=== PATIENT | female | born 1945 | race Hispanic/Latino ===

== ENCOUNTER 2020-08-26 20:11 | Inpatient (IN) | payer MEDICAID, SELFPAY ==
[2020-08-26 20:42] LABS: #Eosinphils 0.2 thou/uL (0.0-0.7); #Monocytes 0.6 thou/uL (0.11-0.59); #Neutrophils 3.4 thou/uL (1.40-6.50); %Basophils 0.8 % (0.0-1.0); %Eosinophils 2.5 % (0.0-10.0); %Lymphocytes 32.1 % (21.0-51.0); %Neutrophils 55.6 % (42.0-75.0); Hemoglobin 13.8 g/dL (12.0-16.0); Mean Corpuscular HGB CONC 32.9 g/dL (32.0-36.0); Mean Corpuscular Hemoglobin 28.9 pg (27.0-31.0); Mean Corpuscular Volume 87.9 fL (78.0-98.0); Mean Platelet Volume 8.6 fL (7.4-10.4); Platelet Count 340 thou/uL (130-400); Red Blood Cell (RBC) Count 4.76 mill/uL (4.20-5.40); White Blood Cell (WBC) Count 6.1 thou/uL (4.8-10.8)
[2020-08-26 20:47] LABS: INR-International Normal Ratio 0.8; PTT 26.3 sec (22.9-36.1); Prothrombin Time 11.6 sec (12.0-14.7)
[2020-08-26 21:04] LABS: ALT (SGPT) 18 U/L (8-55); AST (SGOT) 18 U/L (5-34); Albumin 3.7 g/dL (3.4-4.8); Alkaline Phosphatase 223 U/L (40-110); Anion Gap 17 mmol/L (10-20); BUN (Urea Nitrogen) 21 mg/dL (9.8-20.1); Bilirubin, Total 0.3 mg/dL (0.2-1.2); Calc. Creatinine Clearance 0 mL/min (70-130); Carbon Dioxide 19 mmol/L (23-31); Chloride 95 mmol/L (98-107); Globulin 3.2 g/dL (2.4-3.5); Lipase 82 U/L (8-78); Potassium 4.1 mmol/L (3.5-5.1); Protein, Total 6.9 g/dL (5.8-8.1); Sodium 127 mmol/L (136-145)
[2020-08-26 21:10] LABS: Glucose 750 mg/dL (83-110)
[2020-08-26] MEDS ORDERED: Metoprolol Tartrate 5 MG/5 ML VIAL ONE ×2 (22:34→22:35)
[2020-08-26] MEDS ORDERED: INSULIN REGULAR IN 0.9 % NACL 100 UNIT/100 ML BAG ONE (22:34)
[2020-08-26] MEDS ORDERED: Insulin Regular 300 UNITS/3 ML VIAL ONE (22:36)
[2020-08-27] MEDS ORDERED: Dextrose 50% Abboject 50 ML SYRINGE SLOW IVP PRN (00:20)
[2020-08-27] MEDS ORDERED: Dextrose 5% in Water 1,000 ML IV PRN (00:30)
[2020-08-27] MEDS ORDERED: Dextrose 5 %-0.45 % NaCl 1,000 ML IV PRN ×2 (00:30→01:15)
[2020-08-27] MEDS ORDERED: NS 0.9% w/ 20 MEQ KCL 1,000 ML/1,000 ML BAG IV PRN ×2 (00:30)
[2020-08-27] MEDS ORDERED: D5 1/2 NS w/20 mEq KCL 1,000 ML IV PRN (00:30)
[2020-08-27] MEDS ORDERED: HUMULIN R 100 UNITS in Sodium Chloride 0.9% 100 ML IVPB SCH ×2 (00:30→01:15)
[2020-08-27] MEDS ORDERED: Electrolyte Replacement Protocol FS PRN (00:30)
[2020-08-27] MEDS ORDERED: Sodium Chloride 0.9% 1,000 ML IV PRN ×8 (00:30→01:15)
[2020-08-27] MEDS ORDERED: Insulin Regular 300 UNITS/3 ML VIAL IVP SCH (00:30)
[2020-08-27] MEDS ORDERED: Labetalol HCl 100 MG/20 ML VIAL SLOW IVP PRN (00:36)
[2020-08-27] MEDS ORDERED: hydrALAZINE 20 MG/ML VIAL SLOW IVP PRN (00:36)
[2020-08-27] MEDS ORDERED: Labetalol HCl 100 MG/20 ML VIAL SLOW IVP SCH (00:45)
[2020-08-27 01:10] LABS: SARS-CoV-2 NAA Rapid Test Not Detected (NotDetected)
[2020-08-27] MEDS ORDERED: Electrolyte Replacement Protocol 1 EACH IVPB SCH (01:15)
[2020-08-27] MEDS ORDERED: Acetaminophen 325 MG TAB PO PRN (01:15)
[2020-08-27] MEDS ORDERED: Ondansetron PF 4 MG/2 ML Vial IVP PRN (01:15)
[2020-08-27] MEDS ORDERED: NS 0.9% w/ 20 MEQ KCL 1,000 ML IV PRN ×2 (01:15)
[2020-08-27] MEDS ORDERED: Ondansetron ODT 4 MG TAB PO PRN (01:15)
[2020-08-27 01:46] LABS: Anion Gap 14 mmol/L (10-20); BUN (Urea Nitrogen) 19 mg/dL (9.8-20.1); Calc. Creatinine Clearance 0 mL/min (70-130); Carbon Dioxide 18 mmol/L (23-31); Chloride 107 mmol/L (98-107); Glucose 296 mg/dL (83-110); Potassium 3.6 mmol/L (3.5-5.1); Sodium 135 mmol/L (136-145)
[2020-08-27 02:06] VITALS: BMI 25.0
[2020-08-27] MEDS: D5 1/2 NS w/20 mEq KCL 1,000 ML IV PRN ×2 (02:12→06:23)
[2020-08-27 02:48] LABS: Bacteria/HPF 2+ HPF (None Seen); Bilirubin Negative (Negative); Blood, Urine Trace (Negative); Clarity Turbid (Clear); Glucose, Urine (Dipstick) Greater than 1000 mg/dL (Negative); Ketone, Urine 10 mg/dL (Negative); Leukocyte 25 Leu/uL (Negative); Nitrite Negative (Negative); Protein, Urine (Dipstick) 100 mg/dL (Neg-Trace); RBC/HPF 0-3 HPF (0-3); Specific Gravity, Urine 1.021 (1.002-1.036); Squamous Epithelial 0-3 HPF (0-3); Urobilinogen Normal mg/dL (Less than 2)
[2020-08-27 02:50] LABS: Urine Culture Reflex Yes Yes
[2020-08-27 03:40] LABS: #Monocytes 0.8 thou/uL (0.11-0.59); %Basophils 0.3 % (0.0-1.0); %Eosinophils 0.1 % (0.0-10.0); %Lymphocytes 8.3 % (21.0-51.0); %Monocytes 6.4 % (0.0-10.0); %Neutrophils 84.9 % (42.0-75.0); Hemoglobin 12.4 g/dL (12.0-16.0); Mean Corpuscular HGB CONC 33.3 g/dL (32.0-36.0); Mean Corpuscular Volume 87.2 fL (78.0-98.0); Mean Platelet Volume 8.4 fL (7.4-10.4); Platelet Count 343 thou/uL (130-400); Red Blood Cell (RBC) Count 4.28 mill/uL (4.20-5.40); White Blood Cell (WBC) Count 11.8 thou/uL (4.8-10.8)
[2020-08-27] MEDS ORDERED: NIFEdipine XL 60 MG TAB PO SCH (04:15)
[2020-08-27] MEDS ORDERED: Metoprolol Tartrate 50 MG TAB PO SCH ×2 (04:15→21:00)
[2020-08-27 05:44] LABS: Anion Gap 17 mmol/L (10-20); BUN (Urea Nitrogen) 16 mg/dL (9.8-20.1); Calc. Creatinine Clearance 47 mL/min (70-130); Calcium 7.9 mg/dL (7.8-10.44); Carbon Dioxide 15 mmol/L (23-31); Chloride 110 mmol/L (98-107); Glucose 159 mg/dL (83-110); Potassium 3.6 mmol/L (3.5-5.1); Sodium 138 mmol/L (136-145)
[2020-08-27 05:45] LABS: Cardiac Risk 7.4 (Less than 4.5)
[2020-08-27] MEDS: Piperacillin/Tazobactam 4.5 GM in Sodium Chloride 0.9% 100 ML IVPB SCH ×3 (06:24→22:19)
[2020-08-27] MEDS ORDERED: VANCOMYCIN 1.25 GM/250 ML BAG IVPB SCH (06:30)
[2020-08-27] MEDS: Aspirin 81 mg Enteric Coated Tablet PO SCH (07:36)
[2020-08-27] MEDS ORDERED: Vancomycin 1 GM in Premix Bag 1 BAG IVPB SCH (08:00)
[2020-08-27 08:41] LABS: Lactic Acid 2.8 mmol/L (0.5-2.2)
[2020-08-27] MEDS ORDERED: Enoxaparin Sodium 40 MG/0.4 ML SYRINGE SC SCH (09:00)
[2020-08-27 09:44] LABS: Anion Gap 15 mmol/L (10-20); BUN (Urea Nitrogen) 15 mg/dL (9.8-20.1); Calc. Creatinine Clearance 44 mL/min (70-130); Calcium 8.2 mg/dL (7.8-10.44); Carbon Dioxide 15 mmol/L (23-31); Chloride 106 mmol/L (98-107); Glucose 217 mg/dL (83-110); Potassium 3.7 mmol/L (3.5-5.1); Sodium 132 mmol/L (136-145)
[2020-08-27] MEDS: Lantus 1000 UNITS/10 ML VIAL SC SCH (15:38)
[2020-08-27] MEDS ORDERED: Lantus 1000 UNITS/10 ML VIAL SC SCH (15:45)
[2020-08-27] MEDS: Atorvastatin Calcium 20 MG TAB PO SCH (20:20)
[2020-08-27] MEDS: Metoprolol Tartrate 50 MG TAB PO SCH (20:20)
[2020-08-27] MEDS: HumaLOG 300 UNITS/3 ML VIAL SC PRN (22:19)
[2020-08-27] MEDS ORDERED: Promethazine HCl 25 MG in Sodium Chloride 0.9% 50 ML IVPB SCH (23:45)
[2020-08-28 05:01] LABS: #Lymphocytes 0.7 thou/uL (1.20-3.40); #Monocytes 1.1 thou/uL (0.11-0.59); #Neutrophils 14.6 thou/uL (1.40-6.50); %Basophils 0.1 % (0.0-1.0); %Eosinophils 0.1 % (0.0-10.0); %Lymphocytes 4.1 % (21.0-51.0); %Monocytes 6.6 % (0.0-10.0); %Neutrophils 89.2 % (42.0-75.0); Hemoglobin 12.9 g/dL (12.0-16.0); Mean Corpuscular HGB CONC 35.1 g/dL (32.0-36.0); Mean Corpuscular Volume 88.5 fL (78.0-98.0); Mean Platelet Volume 8.8 fL (7.4-10.4); Platelet Count 332 thou/uL (130-400); RBC Distribution Width 12.5 % (11.5-14.5); Red Blood Cell (RBC) Count 4.16 mill/uL (4.20-5.40); White Blood Cell (WBC) Count 16.4 thou/uL (4.8-10.8)
[2020-08-28 05:21] LABS: Anion Gap 20 mmol/L (10-20); BUN (Urea Nitrogen) 18 mg/dL (9.8-20.1); Calc. Creatinine Clearance 32 mL/min (70-130); Calcium 8.9 mg/dL (7.8-10.44); Carbon Dioxide 14 mmol/L (23-31); Chloride 105 mmol/L (98-107); Glucose 342 mg/dL (83-110); Potassium 4.7 mmol/L (3.5-5.1); Sodium 134 mmol/L (136-145)
[2020-08-28] MEDS: Piperacillin/Tazobactam 4.5 GM in Sodium Chloride 0.9% 100 ML IVPB SCH ×3 (06:12→21:35)
[2020-08-28] MEDS: HumaLOG 300 UNITS/3 ML VIAL SC PRN ×4 (06:19→20:51)
[2020-08-28] MEDS ORDERED: NIFEdipine XL 60 MG TAB PO SCH (09:00)
[2020-08-28] MEDS: Clopidogrel Bisulfate 75 MG TAB PO SCH (09:06)
[2020-08-28] MEDS: Enoxaparin Sodium 30 MG/0.3 ML SYRINGE SC SCH (09:06)
[2020-08-28] MEDS: Metoprolol Tartrate 50 MG TAB PO SCH ×2 (09:06→20:43)
[2020-08-28] MEDS: Aspirin 81 mg Enteric Coated Tablet PO SCH (09:06)
[2020-08-28] MEDS: NIFEdipine XL 60 MG TAB PO SCH (09:07)
[2020-08-28] MEDS: Lantus 1000 UNITS/10 ML VIAL SC SCH ×2 (09:15→20:50)
[2020-08-28] MEDS ORDERED: Ondansetron PF 4 MG/2 ML Vial SLOW IVP SCH (17:45)
[2020-08-28] MEDS ORDERED: Sodium Chloride 0.9% 1,000 ML IV SCH (17:45)
[2020-08-28] MEDS: cefTRIAXone\\ROCEPHIN 2 GM in Sodium Chloride 0.9% 100 ML IVPB SCH (20:38)
[2020-08-28] MEDS: Sodium Chloride 0.9% 1,000 ML IV SCH (20:40)
[2020-08-28] MEDS: Atorvastatin Calcium 20 MG TAB PO SCH (20:43)
[2020-08-29] MEDS: Sodium Chloride 0.9% 1,000 ML IV SCH ×3 (03:41→22:19)
[2020-08-29 05:16] LABS: Hemoglobin 11.2 g/dL (12.0-16.0); Mean Corpuscular HGB CONC 32.1 g/dL (32.0-36.0); Mean Corpuscular Hemoglobin 28.6 pg (27.0-31.0); Mean Corpuscular Volume 88.9 fL (78.0-98.0); Mean Platelet Volume 8.5 fL (7.4-10.4); Platelet Count 317 thou/uL (130-400); RBC Distribution Width 12.8 % (11.5-14.5); Red Blood Cell (RBC) Count 3.93 mill/uL (4.20-5.40); White Blood Cell (WBC) Count 15.6 thou/uL (4.8-10.8)
[2020-08-29] MEDS: Piperacillin/Tazobactam 4.5 GM in Sodium Chloride 0.9% 100 ML IVPB SCH (05:19)
[2020-08-29 05:31] LABS: Anion Gap 16 mmol/L (10-20); BUN (Urea Nitrogen) 31 mg/dL (9.8-20.1); Calc. Creatinine Clearance 17 mL/min (70-130); Calcium 8.5 mg/dL (7.8-10.44); Carbon Dioxide 17 mmol/L (23-31); Chloride 108 mmol/L (98-107); Glucose 170 mg/dL (83-110); Potassium 4.5 mmol/L (3.5-5.1); Sodium 136 mmol/L (136-145)
[2020-08-29 05:42] LABS: Band 20 % (5-11); Lymphocytes 4 % (21-51); MDiff Complete? YES; Monocytes 5 % (0-10); Neutrophil 71 % (42-75); Platelet Morphology Comment Appears Adequate
[2020-08-29] MEDS: HumaLOG 300 UNITS/3 ML VIAL SC PRN ×3 (06:11→16:55)
[2020-08-29] MEDS: Lantus 1000 UNITS/10 ML VIAL SC SCH ×2 (08:47→20:39)
[2020-08-29] MEDS: Aspirin 81 mg Enteric Coated Tablet PO SCH (08:55)
[2020-08-29] MEDS: Enoxaparin Sodium 30 MG/0.3 ML SYRINGE SC SCH (08:55)
[2020-08-29] MEDS: Metoprolol Tartrate 50 MG TAB PO SCH ×2 (08:55→20:27)
[2020-08-29] MEDS: Clopidogrel Bisulfate 75 MG TAB PO SCH (08:55)
[2020-08-29] MEDS: NIFEdipine XL 60 MG TAB PO SCH (08:55)
[2020-08-29] MEDS ORDERED: Piperacillin/Tazobactam 2.25 GM in Sodium Chloride 0.9% 100 ML IVPB SCH (18:00)
[2020-08-29] MEDS: Atorvastatin Calcium 20 MG TAB PO SCH (20:27)
[2020-08-29] MEDS: cefTRIAXone\\ROCEPHIN 2 GM in Sodium Chloride 0.9% 100 ML IVPB SCH (20:27)
[2020-08-30] MEDS: Sodium Chloride 0.9% 1,000 ML IV SCH ×4 (01:19→18:31)
[2020-08-30 07:17] LABS: Anion Gap 14 mmol/L (10-20); BUN (Urea Nitrogen) 33 mg/dL (9.8-20.1); Calc. Creatinine Clearance 16 mL/min (70-130); Calcium 7.8 mg/dL (7.8-10.44); Carbon Dioxide 14 mmol/L (23-31); Chloride 113 mmol/L (98-107); Glucose 73 mg/dL (83-110); Potassium 4.2 mmol/L (3.5-5.1); Sodium 137 mmol/L (136-145)
[2020-08-30 07:38] LABS: Hemoglobin 10.1 g/dL (12.0-16.0); Mean Corpuscular HGB CONC 29.7 g/dL (32.0-36.0); Mean Corpuscular Hemoglobin 26.6 pg (27.0-31.0); Mean Corpuscular Volume 89.4 fL (78.0-98.0); Mean Platelet Volume 8.9 fL (7.4-10.4); Platelet Count 301 thou/uL (130-400); RBC Distribution Width 12.5 % (11.5-14.5); Red Blood Cell (RBC) Count 3.79 mill/uL (4.20-5.40)
[2020-08-30 08:02] LABS: Band 5 % (5-11); Eosinophils 3 % (0-10); Lymphocytes 5 % (21-51); MDiff Complete? YES; Monocytes 3 % (0-10); Neutrophil 84 % (42-75); Platelet Morphology Comment Appears Adequate; Polychromasia SLIGHT = 2-3 cells (100X) (0-2/hpf)
[2020-08-30] MEDS: Aspirin 81 mg Enteric Coated Tablet PO SCH (09:20)
[2020-08-30] MEDS: Metoprolol Tartrate 50 MG TAB PO SCH ×2 (09:20→20:10)
[2020-08-30] MEDS: Clopidogrel Bisulfate 75 MG TAB PO SCH (09:20)
[2020-08-30] MEDS: NIFEdipine XL 60 MG TAB PO SCH (09:21)
[2020-08-30] MEDS: Lantus 1000 UNITS/10 ML VIAL SC SCH ×2 (09:22→20:54)
[2020-08-30] MEDS: Atorvastatin Calcium 20 MG TAB PO SCH (20:10)
[2020-08-30] MEDS: cefTRIAXone\\ROCEPHIN 2 GM in Sodium Chloride 0.9% 100 ML IVPB SCH (20:10)
[2020-08-31 06:09] LABS: #Eosinphils 0.4 thou/uL (0.0-0.7); #Monocytes 0.4 thou/uL (0.11-0.59); #Neutrophils 8.1 thou/uL (1.40-6.50); %Basophils 0.2 % (0.0-1.0); %Eosinophils 4.2 % (0.0-10.0); %Lymphocytes 9.7 % (21.0-51.0); Hemoglobin 10.5 g/dL (12.0-16.0); Mean Corpuscular HGB CONC 32.5 g/dL (32.0-36.0); Mean Corpuscular Hemoglobin 28.8 pg (27.0-31.0); Mean Corpuscular Volume 88.8 fL (78.0-98.0); Mean Platelet Volume 8.2 fL (7.4-10.4); Platelet Count 292 thou/uL (130-400); RBC Distribution Width 12.2 % (11.5-14.5); Red Blood Cell (RBC) Count 3.63 mill/uL (4.20-5.40); White Blood Cell (WBC) Count 9.9 thou/uL (4.8-10.8)
[2020-08-31 06:24] LABS: Anion Gap 14 mmol/L (10-20); BUN (Urea Nitrogen) 29 mg/dL (9.8-20.1); Calc. Creatinine Clearance 19 mL/min (70-130); Calcium 7.2 mg/dL (7.8-10.44); Carbon Dioxide 14 mmol/L (23-31); Chloride 112 mmol/L (98-107); Glucose 77 mg/dL (83-110); Potassium 3.5 mmol/L (3.5-5.1); Sodium 136 mmol/L (136-145)
[2020-08-31] MEDS: Metoprolol Tartrate 50 MG TAB PO SCH ×2 (09:32→21:24)
[2020-08-31] MEDS: Aspirin 81 mg Enteric Coated Tablet PO SCH (09:32)
[2020-08-31] MEDS: NIFEdipine XL 60 MG TAB PO SCH (09:32)
[2020-08-31] MEDS: Sodium Chloride 0.9% 1,000 ML IV SCH (09:32)
[2020-08-31] MEDS: Clopidogrel Bisulfate 75 MG TAB PO SCH (09:32)
[2020-08-31] MEDS: Lantus 1000 UNITS/10 ML VIAL SC SCH ×2 (09:40→21:29)
[2020-08-31] MEDS ORDERED: Sodium Bicarbonate Tab 325 MG TAB PO SCH (17:45)
[2020-08-31] MEDS: cefTRIAXone\\ROCEPHIN 2 GM in Sodium Chloride 0.9% 100 ML IVPB SCH (21:17)
[2020-08-31] MEDS: Atorvastatin Calcium 20 MG TAB PO SCH (21:24)
[2020-08-31] MEDS: Sodium Bicarbonate Tab 325 MG TAB PO SCH (21:24)
[2020-09-01] MEDS: Sodium Chloride 0.9% 1,000 ML IV SCH ×2 (01:36→13:10)
[2020-09-01 05:21] LABS: Anion Gap 12 mmol/L (10-20); BUN (Urea Nitrogen) 26 mg/dL (9.8-20.1); Calc. Creatinine Clearance 21 mL/min (70-130); Calcium 7.2 mg/dL (7.8-10.44); Carbon Dioxide 17 mmol/L (23-31); Chloride 111 mmol/L (98-107); Glucose 129 mg/dL (83-110); Potassium 3.3 mmol/L (3.5-5.1); Sodium 137 mmol/L (136-145)
[2020-09-01] MEDS: Clopidogrel Bisulfate 75 MG TAB PO SCH (09:42)
[2020-09-01] MEDS: NIFEdipine XL 60 MG TAB PO SCH (09:42)
[2020-09-01] MEDS: Aspirin 81 mg Enteric Coated Tablet PO SCH (09:42)
[2020-09-01] MEDS: Metoprolol Tartrate 50 MG TAB PO SCH ×2 (09:42→20:30)
[2020-09-01] MEDS: Sodium Bicarbonate Tab 325 MG TAB PO SCH ×3 (09:42→20:29)
[2020-09-01] MEDS: Lantus 1000 UNITS/10 ML VIAL SC SCH ×2 (09:43→20:34)
[2020-09-01] MEDS ORDERED: Potassium Chloride 20 MEQ TAB PO SCH (12:45)
[2020-09-01] MEDS: HumaLOG 300 UNITS/3 ML VIAL SC PRN (16:26)
[2020-09-01] MEDS: Atorvastatin Calcium 20 MG TAB PO SCH (20:29)
[2020-09-01] MEDS: cefTRIAXone\\ROCEPHIN 2 GM in Sodium Chloride 0.9% 100 ML IVPB SCH (20:29)
[2020-09-02] MEDS: Sodium Chloride 0.9% 1,000 ML IV SCH ×2 (06:07→14:12)
[2020-09-02] MEDS: NIFEdipine XL 60 MG TAB PO SCH (09:19)
[2020-09-02] MEDS: Sodium Bicarbonate Tab 325 MG TAB PO SCH ×2 (09:19→15:21)
[2020-09-02] MEDS: Metoprolol Tartrate 50 MG TAB PO SCH (09:20)
[2020-09-02] MEDS: Aspirin 81 mg Enteric Coated Tablet PO SCH (09:20)
[2020-09-02] MEDS: Clopidogrel Bisulfate 75 MG TAB PO SCH (09:20)
[2020-09-02] MEDS: Lantus 1000 UNITS/10 ML VIAL SC SCH (09:20)
[2020-09-02 11:29] LABS: Anion Gap 15 mmol/L (10-20); BUN (Urea Nitrogen) 22 mg/dL (9.8-20.1); Calc. Creatinine Clearance 23 mL/min (70-130); Calcium 7.7 mg/dL (7.8-10.44); Carbon Dioxide 16 mmol/L (23-31); Chloride 113 mmol/L (98-107); Glucose 135 mg/dL (83-110); Sodium 140 mmol/L (136-145)
[2020-09-02 11:54] VITALS: BP 163/95; TEMP 98
== END 2020-09-02 15:37 | disposition home or self-care (01) | DRG 64 ==
LOC: ERS 20:11 → IMCU/EMU 22:46 → 2SE 08-27 20:00
PROVIDERS: ADMIT Student in an Organized Health Care Education/Training Program; ATTEND Family Medicine
DX: I63.9 Cerebral infarction, unspecified (principal); A41.50 Gram-negative sepsis, unspecified; E11.01 Type 2 diabetes mellitus with hyperosmolarity with coma; G93.41 Metabolic encephalopathy; E87.1 Hypo-osmolality and hyponatremia; I16.1 Hypertensive emergency; N17.9 Acute kidney failure, unspecified; N39.0 Urinary tract infection, site not specified; N18.4 Chronic kidney disease, stage 4 (severe); E87.2 Acidosis; G81.94 Hemiplegia, unspecified affecting left nondominant side; Z86.73 Personal history of transient ischemic attack (TIA), and cerebral infarction without residual deficits; R29.810 Facial weakness; Z79.02 Long term (current) use of antithrombotics/antiplatelets; Z79.4 Long term (current) use of insulin; R33.9 Retention of urine, unspecified; I12.9 Hypertensive chronic kidney disease with stage 1 through stage 4 chronic kidney disease, or unspecified chronic kidney disease; D64.9 Anemia, unspecified; E11.22 Type 2 diabetes mellitus with diabetic chronic kidney disease; E87.6 Hypokalemia; E83.51 Hypocalcemia
CPT/HCPCS: 36415; 36416; 70450; 70551; 71045; 76770; 80048; 80053; 80061; 81001; 82010; 83605; 83690; 83930; 84156; 84484; 85007; 85025; 85027; 85610; 85730; 87040; 87077; 87086; 87186; 93005; 93306; 93880; 94760; 95712; 95819; 95957; 96365; 96375; J0360; J0696; J1650; J1815; J2405; J2543; J2550; J3370; J3480; J3490; U0002

== ENCOUNTER 2021-12-09 21:33 | Inpatient (IN) | payer MEDICAID, SELFPAY ==
[~2021-12-09 21:33] MED LIST: ISOVUE-370 76%-LOCM 1 ML ONE
[2021-12-09 22:08] LABS: #Lymphocytes 1.1 thou/uL (1.20-3.40); #Monocytes 0.4 thou/uL (0.11-0.59); #Neutrophils 5.1 thou/uL (1.40-6.50); %Basophils 0.2 % (0.0-1.0); %Eosinophils 0.4 % (0.0-10.0); %Lymphocytes 16.2 % (21.0-51.0); %Monocytes 6.5 % (0.0-10.0); %Neutrophils 76.8 % (42.0-75.0); Hemoglobin 11.9 g/dL (12.0-16.0); Mean Corpuscular HGB CONC 31.2 g/dL (32.0-36.0); Mean Corpuscular Hemoglobin 29.5 pg (27.0-31.0); Mean Corpuscular Volume 94.5 fL (78.0-98.0); Mean Platelet Volume 8.7 fL (7.4-10.4); Platelet Count 332 thou/uL (130-400); RBC Distribution Width 12.3 % (11.5-14.5); Red Blood Cell (RBC) Count 4.04 mill/uL (4.20-5.40); White Blood Cell (WBC) Count 6.7 thou/uL (4.8-10.8)
[2021-12-09 22:24] LABS: PTT 29.7 sec (22.9-36.1); Prothrombin Time 12.8 sec (12.0-14.7)
[2021-12-09 22:28] LABS: ALT (SGPT) 61 U/L (8-55); AST (SGOT) 61 U/L (5-34); Albumin 3.9 g/dL (3.4-4.8); Alkaline Phosphatase 244 U/L (40-110); Anion Gap 18 mmol/L (10-20); BUN (Urea Nitrogen) 45 mg/dL (9.8-20.1); Bilirubin, Total 0.6 mg/dL (0.2-1.2); Calc. Creatinine Clearance 0 mL/min (70-130); Calcium 9.4 mg/dL (7.8-10.44); Carbon Dioxide 22 mmol/L (23-31); Chloride 87 mmol/L (98-107); Estimated GFR 13; Globulin 3.3 g/dL (2.4-3.5); Lipase 50 U/L (8-78); Protein, Total 7.2 g/dL (5.8-8.1); Sodium 122 mmol/L (136-145)
[2021-12-09 22:31] LABS: Glucose 1101 mg/dL (83-110)
[2021-12-09] MEDS ORDERED: Labetalol HCl 100 MG/20 ML VIAL ONE ×2 (22:32→22:35)
[2021-12-09] MEDS ORDERED: Tenecteplase 50 MG - STEMI KIT ONE (22:35)
[2021-12-09 22:53] LABS: CKMB 3.7 ng/mL (0-6.6)
[2021-12-09 23:29] LABS: Actual Bicarbonate (HCO3v) 21 mEq/L (22-28); Analyzer IN Cardio ER; Base Excess -4.3 mEq/L (-2.0 to +3.0); Calcium, Ionized (venous) 1.12 mmol/L (1.16-1.32); Chloride (VBG) 90 mmol/L (98-106); Sodium 122.2 mmol/L (133-146); pH (venous) 7.36 (7.32-7.43)
[2021-12-10] MEDS ORDERED: Dextrose 5 %-0.45 % NaCl 1,000 ML IV PRN
[2021-12-10] MEDS ORDERED: Ondansetron ODT 4 MG TAB PO PRN
[2021-12-10] MEDS ORDERED: D5 1/2 NS w/20 mEq KCL 1,000 ML IV PRN
[2021-12-10] MEDS ORDERED: Electrolyte Replacement Protocol 1 EACH IVPB PRN
[2021-12-10] MEDS ORDERED: Acetaminophen 650 MG Suppository PR PRN
[2021-12-10] MEDS ORDERED: Sodium Chloride 0.9% 1,000 ML IV PRN ×4
[2021-12-10] MEDS ORDERED: Ondansetron PF 4 MG/2 ML Vial IVP PRN
[2021-12-10] MEDS ORDERED: NS 0.9% w/ 20 MEQ KCL 1,000 ML IV PRN
[2021-12-10 00:59] LABS: SARS-CoV-2 NAA Rapid Test Not Detected (NotDetected)
[2021-12-10 01:11] LABS: Clarity Clear (Clear); Leukocyte Negative (Negative)
[2021-12-10 01:12] LABS: Glucose, Urine (Dipstick) >=1000 mg/dL (Negative); Ketone, Urine Negative (Negative); Nitrite Negative (Negative); Protein, Urine (Dipstick) 30 mg/dL (Neg-Trace)
[2021-12-10 01:13] LABS: Bilirubin Negative (Negative); Blood, Urine Trace (Negative); Urobilinogen 0.2 mg/dL (Less than 2)
[2021-12-10] MEDS ORDERED: HUMULIN R 100 UNITS in Sodium Chloride 0.9% 100 ML IVPB SCH (01:15)
[2021-12-10 01:20] LABS: Bacteria/HPF 4+ HPF (None Seen); RBC/HPF 0-3 HPF (0-3); Squamous Epithelial 0-3 HPF (0-3)
[2021-12-10 01:52] LABS: Anion Gap 17 mmol/L (10-20); BUN (Urea Nitrogen) 44 mg/dL (9.8-20.1); Calc. Creatinine Clearance 13 mL/min (70-130); Calcium 8.9 mg/dL (7.8-10.44); Carbon Dioxide 20 mmol/L (23-31); Chloride 96 mmol/L (98-107); Estimated GFR 17; Potassium 4.8 mmol/L (3.5-5.1); Sodium 128 mmol/L (136-145)
[2021-12-10 01:57] LABS: Troponin I 0.047 ng/mL (< 0.028)
[2021-12-10] MEDS: NS 0.9% w/ 20 MEQ KCL 1,000 ML IV PRN ×3 (02:03→13:36)
[2021-12-10 02:04] LABS: Glucose 935 mg/dL (83-110)
[2021-12-10 03:14] LABS: Glucose 897 mg/dL (83-110)
[2021-12-10] MEDS: Labetalol HCl 100 MG/20 ML VIAL SLOW IVP PRN ×5 (04:37→22:04)
[2021-12-10 04:41] LABS: ALT (SGPT) 46 U/L (8-55); AST (SGOT) 33 U/L (5-34); Albumin 3.4 g/dL (3.4-4.8); Alkaline Phosphatase 195 U/L (40-110); Bilirubin, Direct 0.2 mg/dL (0.1-0.3); Bilirubin, Total 0.5 mg/dL (0.2-1.2)
[2021-12-10 04:42] LABS: Anion Gap 18 mmol/L (10-20); BUN (Urea Nitrogen) 40 mg/dL (9.8-20.1); Calc. Creatinine Clearance 15 mL/min (70-130); Calcium 8.7 mg/dL (7.8-10.44); Carbon Dioxide 17 mmol/L (23-31); Cardiac Risk 5.1 (Less than 4.5); Chloride 105 mmol/L (98-107); Cholesterol 158 mg/dl (< 200 Desired); Estimated GFR 19; HDL Cholesterol 31 mg/dL (>60 Neg Risk); LDL Cholesterol, Calculated 96 mg/dL; Potassium 4.9 mmol/L (3.5-5.1); Sodium 135 mmol/L (136-145); Triglycerides 155 mg/dL (Less than 150)
[2021-12-10 04:45] LABS: Glucose 671 mg/dL (83-110)
[2021-12-10 04:47] LABS: Troponin I 0.058 ng/mL (< 0.028)
[2021-12-10 05:41] LABS: Glucose 646 mg/dL (83-110)
[2021-12-10 05:57] LABS: HBCM Index 0.16 S/CO (0-0.79); HBSAg Index 0.27 S/CO (0-0.99); Hep A IgM AB Non-Reactive (NonReactive); Hep B Surf Ag Non-Reactive S/CO (NonReactive); Hep C IgG Ab Non-Reactive (NonReactive); Hep C Index 0.05 S/CO (0-0.79); Hepatitis B Core IgM Abs Non-Reactive (NonReactive)
[2021-12-10 06:31] LABS: Glucose 621 mg/dL (83-110)
[2021-12-10 08:56] LABS: Anion Gap 15 mmol/L (10-20); BUN (Urea Nitrogen) 34 mg/dL (9.8-20.1); Calc. Creatinine Clearance 16 mL/min (70-130); Calcium 8.5 mg/dL (7.8-10.44); Carbon Dioxide 17 mmol/L (23-31); Chloride 111 mmol/L (98-107); Estimated GFR 20; Glucose 540 mg/dL (83-110); Sodium 138 mmol/L (136-145)
[2021-12-10 12:18] LABS: Anion Gap 13 mmol/L (10-20); BUN (Urea Nitrogen) 31 mg/dL (9.8-20.1); Calc. Creatinine Clearance 18 mL/min (70-130); Calcium 8.4 mg/dL (7.8-10.44); Carbon Dioxide 20 mmol/L (23-31); Chloride 117 mmol/L (98-107); Estimated GFR 23; Glucose 301 mg/dL (83-110); Potassium 4.5 mmol/L (3.5-5.1); Sodium 145 mmol/L (136-145)
[2021-12-10] MEDS ORDERED: hydrALAZINE 20 MG/ML VIAL SLOW IVP PRN ×3 (13:24→21:25)
[2021-12-10 16:26] LABS: Glucose 154 mg/dL (83-110)
[2021-12-10] MEDS ORDERED: Dextrose 5% in Water 1,000 ML IV PRN (16:54)
[2021-12-10] MEDS ORDERED: Dextrose 50% Abboject 50 ML SYRINGE SLOW IVP PRN (16:54)
[2021-12-10] MEDS: Sodium Chloride 0.45% 1,000 ML IV SCH (17:00)
[2021-12-10] MEDS: Atorvastatin Calcium 40 MG TAB PO SCH (20:06)
[2021-12-10] MEDS: Insulin Glargine 30 UNITS/0.3 ML VIAL SC SCH (20:21)
[2021-12-10] MEDS: HumaLOG 300 UNITS/3 ML VIAL SC PRN (22:20)
[2021-12-11] MEDS: Sodium Chloride 0.45% 1,000 ML IV SCH ×2 (03:10→13:25)
[2021-12-11 04:07] LABS: Hemoglobin A1c Greater than 14.0 % (4.0-6.0); Mean Corpuscular HGB CONC 33.1 g/dL (32.0-36.0); Mean Corpuscular Hemoglobin 29.8 pg (27.0-31.0); Mean Corpuscular Volume 89.9 fL (78.0-98.0); Mean Platelet Volume 8.1 fL (7.4-10.4); Platelet Count 284 thou/uL (130-400); RBC Distribution Width 12.6 % (11.5-14.5); Red Blood Cell (RBC) Count 3.01 mill/uL (4.20-5.40); White Blood Cell (WBC) Count 12.3 thou/uL (4.8-10.8)
[2021-12-11 04:19] LABS: Anion Gap 13 mmol/L (10-20); BUN (Urea Nitrogen) 22 mg/dL (9.8-20.1); Calc. Creatinine Clearance 24 mL/min (70-130); Carbon Dioxide 20 mmol/L (23-31); Cardiac Risk 4.7 (Less than 4.5); Chloride 115 mmol/L (98-107); Cholesterol 156 mg/dl (< 200 Desired); Estimated GFR 32; Glucose 119 mg/dL (83-110); HDL Cholesterol 33 mg/dL (>60 Neg Risk); LDL Cholesterol, Calculated 92 mg/dL; Potassium 3.8 mmol/L (3.5-5.1); Sodium 144 mmol/L (136-145); Triglycerides 154 mg/dL (Less than 150)
[2021-12-11] MEDS: Labetalol HCl 100 MG/20 ML VIAL SLOW IVP PRN (09:16)
[2021-12-11 11:04] VITALS: BMI 24.0
[2021-12-11] MEDS ORDERED: Aspirin 81 mg Enteric Coated Tablet PO SCH (12:00)
[2021-12-11] MEDS: HumaLOG 300 UNITS/3 ML VIAL SC PRN (17:16)
[2021-12-11] MEDS: Insulin Glargine 30 UNITS/0.3 ML VIAL SC SCH (22:04)
[2021-12-11] MEDS: Atorvastatin Calcium 40 MG TAB PO SCH (22:05)
[2021-12-12] MEDS: HumaLOG 300 UNITS/3 ML VIAL SC PRN ×3 (01:49→16:35)
[2021-12-12 05:56] LABS: Anion Gap 12 mmol/L (10-20); BUN (Urea Nitrogen) 23 mg/dL (9.8-20.1); Calc. Creatinine Clearance 22 mL/min (70-130); Calcium 8.4 mg/dL (7.8-10.44); Carbon Dioxide 19 mmol/L (23-31); Chloride 114 mmol/L (98-107); Estimated GFR 28; Glucose 197 mg/dL (83-110); Potassium 3.9 mmol/L (3.5-5.1); Sodium 141 mmol/L (136-145)
[2021-12-12] MEDS: Sodium Chloride 0.45% 1,000 ML IV SCH ×2 (06:56→22:33)
[2021-12-12] MEDS ORDERED: Aspirin 300 MG Suppository PR SCH (09:00)
[2021-12-12] MEDS: Aspirin 81 mg Enteric Coated Tablet PO SCH (09:02)
[2021-12-12 09:50] LABS: Bilirubin Negative (Negative); Blood, Urine Trace (Negative); Glucose, Urine (Dipstick) >=1000 mg/dL (Negative); Ketone, Urine Negative (Negative); Leukocyte Trace (Negative); Nitrite Negative (Negative); Protein, Urine (Dipstick) 100 mg/dL (Neg-Trace); Specific Gravity, Urine 1.025 (1.005-1.030); Urobilinogen 0.2 mg/dL (Less than 2)
[2021-12-12 09:59] LABS: Clarity Turbid (Clear)
[2021-12-12 10:01] LABS: Bacteria/HPF 4+ HPF (None Seen); RBC/HPF 0-3 HPF (0-3)
[2021-12-12 10:02] LABS: Urine Culture Reflex No No
[2021-12-12] MEDS: cefTRIAXone\\ROCEPHIN 1 GM in Sodium Chloride 0.9% 100 ML IVPB SCH (12:21)
[2021-12-12] MEDS: Acetaminophen 325 MG TAB PO PRN (22:19)
[2021-12-12] MEDS: Insulin Glargine 30 UNITS/0.3 ML VIAL SC SCH (22:20)
[2021-12-12] MEDS: Atorvastatin Calcium 40 MG TAB PO SCH (22:20)
[2021-12-12] MEDS: Labetalol HCl 100 MG/20 ML VIAL SLOW IVP PRN (22:34)
[2021-12-13 05:44] LABS: Hemoglobin 8.1 g/dL (12.0-16.0); Mean Corpuscular HGB CONC 33.2 g/dL (32.0-36.0); Mean Corpuscular Hemoglobin 30.1 pg (27.0-31.0); Mean Corpuscular Volume 90.6 fL (78.0-98.0); Mean Platelet Volume 8.1 fL (7.4-10.4); Platelet Count 227 thou/uL (130-400); RBC Distribution Width 12.5 % (11.5-14.5); Red Blood Cell (RBC) Count 2.68 mill/uL (4.20-5.40); White Blood Cell (WBC) Count 6.3 thou/uL (4.8-10.8)
[2021-12-13 06:07] LABS: Anion Gap 11 mmol/L (10-20); BUN (Urea Nitrogen) 23 mg/dL (9.8-20.1); Calc. Creatinine Clearance 22 mL/min (70-130); Calcium 7.9 mg/dL (7.8-10.44); Carbon Dioxide 17 mmol/L (23-31); Chloride 112 mmol/L (98-107); Estimated GFR 28; Glucose 231 mg/dL (83-110); Potassium 3.9 mmol/L (3.5-5.1); Sodium 136 mmol/L (136-145)
[2021-12-13] MEDS: HumaLOG 300 UNITS/3 ML VIAL SC PRN ×4 (06:29→20:16)
[2021-12-13] MEDS: Aspirin 81 mg Enteric Coated Tablet PO SCH (10:08)
[2021-12-13] MEDS: Acetaminophen 325 MG TAB PO PRN (10:14)
[2021-12-13] MEDS: Sodium Chloride 0.45% 1,000 ML IV SCH ×2 (10:19→20:21)
[2021-12-13] MEDS: cefTRIAXone\\ROCEPHIN 1 GM in Sodium Chloride 0.9% 100 ML IVPB SCH (13:11)
[2021-12-13] MEDS: Insulin Glargine 30 UNITS/0.3 ML VIAL SC SCH (20:16)
[2021-12-13] MEDS: Atorvastatin Calcium 40 MG TAB PO SCH (20:16)
[2021-12-14 05:22] LABS: Anion Gap 9 mmol/L (10-20); BUN (Urea Nitrogen) 24 mg/dL (9.8-20.1); Calc. Creatinine Clearance 24 mL/min (70-130); Calcium 7.9 mg/dL (7.8-10.44); Carbon Dioxide 21 mmol/L (23-31); Chloride 110 mmol/L (98-107); Estimated GFR 32; Glucose 100 mg/dL (83-110); Sodium 136 mmol/L (136-145)
[2021-12-14] MEDS: Aspirin 81 mg Enteric Coated Tablet PO SCH (08:55)
[2021-12-14] MEDS: Acetaminophen 325 MG TAB PO PRN (08:55)
[2021-12-14] MEDS: Sodium Chloride 0.45% 1,000 ML IV SCH (11:40)
[2021-12-14] MEDS: HumaLOG 300 UNITS/3 ML VIAL SC PRN ×2 (17:31→20:04)
[2021-12-14] MEDS: Atorvastatin Calcium 40 MG TAB PO SCH (20:04)
[2021-12-14] MEDS: Insulin Glargine 30 UNITS/0.3 ML VIAL SC SCH (20:04)
[2021-12-15] MEDS: Sodium Chloride 0.45% 1,000 ML IV SCH (00:28)
[2021-12-15] MEDS: Labetalol HCl 100 MG/20 ML VIAL SLOW IVP PRN (04:15)
[2021-12-15 05:58] LABS: Anion Gap 10 mmol/L (10-20); BUN (Urea Nitrogen) 24 mg/dL (9.8-20.1); Calc. Creatinine Clearance 26 mL/min (70-130); Calcium 8.2 mg/dL (7.8-10.44); Carbon Dioxide 22 mmol/L (23-31); Chloride 107 mmol/L (98-107); Estimated GFR 34; Glucose 200 mg/dL (83-110); Potassium 3.9 mmol/L (3.5-5.1); Sodium 135 mmol/L (136-145)
[2021-12-15] MEDS: HumaLOG 300 UNITS/3 ML VIAL SC PRN ×3 (06:10→17:09)
[2021-12-15] MEDS: Aspirin 81 mg Enteric Coated Tablet PO SCH (09:59)
[2021-12-15] MEDS ORDERED: NIFEdipine XL 60 MG TAB PO SCH (11:00)
[2021-12-15] MEDS ORDERED: Clopidogrel Bisulfate 75 MG TAB PO SCH (11:00)
[2021-12-15 11:55] VITALS: TEMP 98.1
[2021-12-15 15:48] VITALS: BP 124/63
[2021-12-15] MEDS ORDERED: Metoprolol Tartrate 50 MG TAB PO SCH ×2 (18:15→21:00)
[2021-12-16] MEDS ORDERED: Clopidogrel Bisulfate 75 MG TAB PO SCH (09:00)
[2021-12-16] MEDS ORDERED: NIFEdipine XL 60 MG TAB PO SCH (09:00)
[2021-12-16] MEDS ORDERED: Cholecalciferol 1,000 UNITS (25 MCG) TAB PO SCH (09:00)
== END 2021-12-15 19:20 | disposition home health service (06) | DRG 61 ==
LOC: ERS 21:33 → CCU 23:37 → NEURO 12-11 19:14
PROVIDERS: ADMIT Family Medicine; ATTEND Family Medicine
DX: I63.312 Cerebral infarction due to thrombosis of left middle cerebral artery (principal); Z66 Do not resuscitate; Z20.822 Contact with and (suspected) exposure to COVID-19; R29.711 NIHSS score 11; G93.41 Metabolic encephalopathy; N17.9 Acute kidney failure, unspecified; E87.1 Hypo-osmolality and hyponatremia; I12.9 Hypertensive chronic kidney disease with stage 1 through stage 4 chronic kidney disease, or unspecified chronic kidney disease; E11.22 Type 2 diabetes mellitus with diabetic chronic kidney disease; F80.2 Mixed receptive-expressive language disorder; E78.5 Hyperlipidemia, unspecified; F32.A Depression, unspecified; R29.810 Facial weakness; E11.65 Type 2 diabetes mellitus with hyperglycemia; N18.30 Chronic kidney disease, stage 3 unspecified; R74.01 Elevation of levels of liver transaminase levels; E86.0 Dehydration; E66.9 Obesity, unspecified; D63.1 Anemia in chronic kidney disease; E86.9 Volume depletion, unspecified; I44.7 Left bundle-branch block, unspecified; R82.998 Other abnormal findings in urine; Z78.1 Physical restraint status; Z86.73 Personal history of transient ischemic attack (TIA), and cerebral infarction without residual deficits; Z79.4 Long term (current) use of insulin; Z79.899 Other long term (current) drug therapy; Z79.02 Long term (current) use of antithrombotics/antiplatelets; Z79.82 Long term (current) use of aspirin; Z79.84 Long term (current) use of oral hypoglycemic drugs; Z68.24 Body mass index [BMI] 24.0-24.9, adult
CPT/HCPCS: 36415; 36416; 51702; 70450; 70496; 70498; 70551; 80048; 80053; 80061; 80074; 80076; 81001; 81003; 81015; 82010; 82140; 82550; 82553; 82805; 83036; 83690; 84484; 85025; 85027; 85610; 85730; 93005; 93306; 96361; 96374; 96375; J0360; J0696; J1815; J3101; J3480; J3490; J7042; J7050; Q9966; U0002

== ENCOUNTER 2022-03-01 11:30 | Emergency (ER) | payer MEDICAID ==
[2022-03-01 14:20] LABS: Bacteria/HPF 4+ HPF (None Seen); Bilirubin Negative (Negative); Blood, Urine Negative (Negative); Clarity Cloudy (Clear); Glucose, Urine (Dipstick) Greater than 1000 mg/dL (Negative); Ketone, Urine Negative (Negative); Leukocyte 500 Leu/uL (Negative); Nitrite 2+ (Negative); Protein, Urine (Dipstick) 70 mg/dL (Neg-Trace); RBC/HPF 0-3 HPF (0-3); Specific Gravity, Urine 1.011 (1.002-1.036); Squamous Epithelial 0-3 HPF (0-3); Triple Phosphate Crystal Rare HPF (None Seen); Urobilinogen Normal mg/dL (Less than 2); WBC/HPF 21-50 HPF (0-3)
== END 2022-03-01 14:54 | disposition home or self-care (01) ==
LOC: ERS 11:30
DX: N39.0 Urinary tract infection, site not specified (principal); E11.9 Type 2 diabetes mellitus without complications; I10 Essential (primary) hypertension; Z86.73 Personal history of transient ischemic attack (TIA), and cerebral infarction without residual deficits
CPT/HCPCS: 81003; 81015; 87086; 99283

== ENCOUNTER 2022-05-03 12:40 | Inpatient (IN) | payer MEDICAID, SELFPAY ==
[2022-05-03 13:50] LABS: #Lymphocytes 0.6 thou/uL (1.20-3.40); #Monocytes 0.5 thou/uL (0.11-0.59); #Neutrophils 6.8 thou/uL (1.40-6.50); %Basophils 0.1 % (0.0-1.0); %Eosinophils 0.1 % (0.0-10.0); %Lymphocytes 7.8 % (21.0-51.0); %Monocytes 6.6 % (0.0-10.0); %Neutrophils 85.4 % (42.0-75.0); Hemoglobin 11.8 g/dL (12.0-16.0); Mean Corpuscular HGB CONC 33.2 g/dL (32.0-36.0); Mean Corpuscular Hemoglobin 29.8 pg (27.0-31.0); Mean Corpuscular Volume 89.7 fl (78.0-98.0); Mean Platelet Volume 9.2 fL (7.4-10.4); Platelet Count 419 10x3/uL (130-400); RBC Distribution Width 12.5 % (11.5-14.5); Red Blood Cell (RBC) Count 3.97 mill/uL (4.20-5.40)
[2022-05-03 14:00] LABS: PTT 29.6 sec (22.9-36.1); Prothrombin Time 13.3 sec (12.0-14.7)
[2022-05-03 14:04] LABS: Bacteria/HPF 3+ HPF (None Seen); Bilirubin Negative (Negative); Blood, Urine Trace (Negative); Clarity Turbid (Clear); Glucose, Urine (Dipstick) Greater than 1000 mg/dL (Negative); Ketone, Urine Trace mg/dL (Negative); Leukocyte 250 Leu/uL (Negative); Nitrite Negative (Negative); Protein, Urine (Dipstick) 70 mg/dL (Neg-Trace); RBC/HPF 0-3 HPF (0-3); Specific Gravity, Urine 1.023 (1.002-1.036); Squamous Epithelial None Seen HPF (0-3); Urobilinogen Normal mg/dL (Less than 2); WBC/HPF 21-50 HPF (0-3); pH, Urine 5.5 (5.0-9.0)
[2022-05-03 14:08] LABS: ALT (SGPT) 20 U/L (8-55); AST (SGOT) 16 U/L (5-34); Albumin 4.2 g/dL (3.4-4.8); Alkaline Phosphatase 194 U/L (40-110); Anion Gap 17 mmol/L (10-20); BUN (Urea Nitrogen) 58 mg/dL (9.8-20.1); Bilirubin, Total 0.7 mg/dL (0.2-1.2); Calc. Creatinine Clearance 0 mL/min (70-130); Calcium 10.3 mg/dL (7.8-10.44); Carbon Dioxide 25 mmol/L (23-31); Chloride 93 mmol/L (98-107); Estimated GFR 14; Globulin 4.1 g/dL (2.4-3.5); Potassium 4.2 mmol/L (3.5-5.1); Protein, Total 8.3 g/dL (5.8-8.1); Sodium 131 mmol/L (136-145)
[2022-05-03 14:18] LABS: Glucose 864 mg/dL (83-110)
[2022-05-03] MEDS ORDERED: cefTRIAXone\\ROCEPHIN 1 GM VIAL ONE (14:25)
[2022-05-03] MEDS ORDERED: Insulin Regular 300 UNITS/3 ML VIAL ONE (14:25)
[2022-05-03 14:30] LABS: CKMB 2.9 ng/mL (0-6.6)
[2022-05-03] MEDS ORDERED: NS 0.9% w/ 20 MEQ KCL 1,000 ML IV PRN ×2 (16:24)
[2022-05-03] MEDS ORDERED: Electrolyte Replacement Protocol 1 EACH IVPB ONE (16:24)
[2022-05-03] MEDS ORDERED: Acetaminophen 325 MG TAB PO PRN (16:24)
[2022-05-03] MEDS ORDERED: Sodium Chloride 0.9% 1,000 ML IV PRN ×4 (16:24)
[2022-05-03] MEDS ORDERED: D5 1/2 NS w/20 mEq KCL 1,000 ML IV PRN (16:24)
[2022-05-03] MEDS ORDERED: Dextrose 5 %-0.45 % NaCl 1,000 ML IV PRN (16:24)
[2022-05-03] MEDS ORDERED: HUMULIN R 100 UNITS in Sodium Chloride 0.9% 100 ML IVPB SCH (16:30)
[2022-05-03 17:08] LABS: Anion Gap 16 mmol/L (10-20); BUN (Urea Nitrogen) 54 mg/dL (9.8-20.1); Calc. Creatinine Clearance 0 mL/min (70-130); Calcium 9.6 mg/dL (7.8-10.44); Carbon Dioxide 24 mmol/L (23-31); Chloride 102 mmol/L (98-107); Estimated GFR 18; Potassium 4.2 mmol/L (3.5-5.1); Sodium 138 mmol/L (136-145)
[2022-05-03 17:14] LABS: Troponin I 0.036 ng/mL (< 0.028)
[2022-05-03 17:17] LABS: Glucose 584 mg/dL (83-110)
[2022-05-03 19:46] VITALS: BMI 20.5
[2022-05-03] MEDS ORDERED: HumaLOG 300 UNITS/3 ML VIAL SC PRN (19:46)
[2022-05-03] MEDS ORDERED: Dextrose 5% in Water 1,000 ML IV PRN (19:46)
[2022-05-03] MEDS ORDERED: Dextrose 50% Abboject 50 ML SYRINGE SLOW IVP PRN (19:46)
[2022-05-03] MEDS: Insulin Glargine 30 UNITS/0.3 ML VIAL SC SCH (20:07)
[2022-05-03] MEDS: Famotidine/PF 20 mg/2ml Vial SLOW IVP SCH (20:07)
[2022-05-03] MEDS: Heparin 5,000 UNITS/ML VIAL SC SCH (20:07)
[2022-05-03] MEDS: HumaLOG 300 UNITS/3 ML VIAL SC PRN (20:08)
[2022-05-03 21:11] LABS: Anion Gap 13 mmol/L (10-20); BUN (Urea Nitrogen) 46 mg/dL (9.8-20.1); Calc. Creatinine Clearance 16 mL/min (70-130); Calcium 8.9 mg/dL (7.8-10.44); Carbon Dioxide 23 mmol/L (23-31); Chloride 108 mmol/L (98-107); Estimated GFR 23; Glucose 317 mg/dL (83-110); Potassium 3.1 mmol/L (3.5-5.1); Sodium 141 mmol/L (136-145)
[2022-05-03 21:12] LABS: Troponin I 0.049 ng/mL (< 0.028)
[2022-05-04 04:24] LABS: Anion Gap 13 mmol/L (10-20); BUN (Urea Nitrogen) 45 mg/dL (9.8-20.1); Calc. Creatinine Clearance 18 mL/min (70-130); Calcium 9.3 mg/dL (7.8-10.44); Carbon Dioxide 24 mmol/L (23-31); Chloride 112 mmol/L (98-107); Estimated GFR 25; Glucose 61 mg/dL (83-110); Potassium 3.1 mmol/L (3.5-5.1); Sodium 146 mmol/L (136-145)
[2022-05-04] MEDS: Heparin 5,000 UNITS/ML VIAL SC SCH ×3 (09:29→21:04)
[2022-05-04] MEDS: cefTRIAXone\\ROCEPHIN 1 GM in Sodium Chloride 0.9% 100 ML IVPB SCH (16:28)
[2022-05-04] MEDS: Famotidine/PF 20 mg/2ml Vial SLOW IVP SCH (21:04)
[2022-05-04] MEDS: Insulin Glargine 30 UNITS/0.3 ML VIAL SC SCH (21:04)
[2022-05-05] MEDS ORDERED: Electrolyte Replacement Protocol 1 EACH FS SCH (00:45)
[2022-05-05 01:41] LABS: Magnesium 2.3 mg/dL (1.6-2.6)
[2022-05-05 01:49] LABS: Troponin I 0.031 ng/mL (< 0.028)
[2022-05-05 01:53] LABS: Anion Gap 13 mmol/L (10-20); BUN (Urea Nitrogen) 37 mg/dL (9.8-20.1); Calc. Creatinine Clearance 19 mL/min (70-130); Calcium 8.9 mg/dL (7.8-10.44); Carbon Dioxide 21 mmol/L (23-31); Chloride 110 mmol/L (98-107); Estimated GFR 27; Glucose 98 mg/dL (83-110); Potassium 3.2 mmol/L (3.5-5.1); Sodium 141 mmol/L (136-145)
[2022-05-05] MEDS ORDERED: Potassium Chloride 20 MEQ TAB PO SCH (03:30)
[2022-05-05] MEDS: Heparin 5,000 UNITS/ML VIAL SC SCH ×3 (09:21→20:32)
[2022-05-05] MEDS: cefTRIAXone\\ROCEPHIN 1 GM in Sodium Chloride 0.9% 100 ML IVPB SCH (15:39)
[2022-05-05] MEDS: HumaLOG 300 UNITS/3 ML VIAL SC PRN (15:39)
[2022-05-05] MEDS: Atorvastatin Calcium 40 MG TAB PO SCH (20:32)
[2022-05-05] MEDS: Famotidine/PF 20 mg/2ml Vial SLOW IVP SCH (20:32)
[2022-05-05] MEDS: Metoprolol Tartrate 50 MG TAB PO SCH (20:32)
[2022-05-05] MEDS: Insulin Glargine 30 UNITS/0.3 ML VIAL SC SCH (20:34)
[2022-05-06] MEDS ORDERED: Morphine 4 MG/ML VIAL SLOW IVP PRN (00:27)
[2022-05-06] MEDS ORDERED: Metoprolol Tartrate 25 MG TAB PO SCH (00:30)
[2022-05-06 05:06] LABS: #Eosinphils 0.2 thou/uL (0.0-0.7); #Lymphocytes 1.9 thou/uL (1.20-3.40); #Monocytes 0.5 thou/uL (0.11-0.59); #Neutrophils 3.9 thou/uL (1.40-6.50); %Basophils 0.5 % (0.0-1.0); %Eosinophils 2.4 % (0.0-10.0); %Lymphocytes 29.4 % (21.0-51.0); %Monocytes 8.3 % (0.0-10.0); %Neutrophils 59.4 % (42.0-75.0); Hemoglobin 9.8 g/dL (12.0-16.0); Mean Corpuscular Hemoglobin 29.5 pg (27.0-31.0); Mean Corpuscular Volume 92.3 fl (78.0-98.0); Mean Platelet Volume 8.6 fL (7.4-10.4); Platelet Count 371 10x3/uL (130-400); RBC Distribution Width 12.6 % (11.5-14.5); Red Blood Cell (RBC) Count 3.33 mill/uL (4.20-5.40); White Blood Cell (WBC) Count 6.5 10x3/uL (4.8-10.8)
[2022-05-06 05:24] LABS: Anion Gap 12 mmol/L (10-20); BUN (Urea Nitrogen) 39 mg/dL (9.8-20.1); Calc. Creatinine Clearance 19 mL/min (70-130); Calcium 8.3 mg/dL (7.8-10.44); Carbon Dioxide 20 mmol/L (23-31); Chloride 109 mmol/L (98-107); Estimated GFR 28; Glucose 159 mg/dL (83-110); Potassium 4.1 mmol/L (3.5-5.1); Sodium 137 mmol/L (136-145)
[2022-05-06] MEDS ORDERED: FLU VACC QS2022-23(65YR UP)/PF 240 MCG/0.7 ML SYRINGE IM ONE (09:00)
[2022-05-06] MEDS: Aspirin 81 mg Enteric Coated Tablet PO SCH (09:11)
[2022-05-06] MEDS: Clopidogrel Bisulfate 75 MG TAB PO SCH (09:11)
[2022-05-06] MEDS: Cholecalciferol 1,000 UNITS (25 MCG) TAB PO SCH (09:11)
[2022-05-06] MEDS: Metoprolol Tartrate 50 MG TAB PO SCH ×2 (09:11→22:10)
[2022-05-06] MEDS: Heparin 5,000 UNITS/ML VIAL SC SCH ×3 (09:12→22:09)
[2022-05-06] MEDS: HumaLOG 300 UNITS/3 ML VIAL SC PRN (13:18)
[2022-05-06] MEDS: cefTRIAXone\\ROCEPHIN 1 GM in Sodium Chloride 0.9% 100 ML IVPB SCH (13:19)
[2022-05-06] MEDS ORDERED: NIFEdipine XL 60 MG TAB PO SCH (14:00)
[2022-05-06] MEDS: Atorvastatin Calcium 40 MG TAB PO SCH (22:09)
[2022-05-06] MEDS: Famotidine/PF 20 mg/2ml Vial SLOW IVP SCH (22:09)
[2022-05-06] MEDS: Insulin Glargine 30 UNITS/0.3 ML VIAL SC SCH (22:10)
[2022-05-07] MEDS ORDERED: Melatonin 3 MG TAB PO PRN (01:36)
[2022-05-07 05:25] LABS: Anion Gap 11 mmol/L (10-20); BUN (Urea Nitrogen) 37 mg/dL (9.8-20.1); Calc. Creatinine Clearance 19 mL/min (70-130); Calcium 8.5 mg/dL (7.8-10.44); Carbon Dioxide 22 mmol/L (23-31); Chloride 108 mmol/L (98-107); Estimated GFR 28; Glucose 178 mg/dL (83-110); Potassium 4.5 mmol/L (3.5-5.1); Sodium 136 mmol/L (136-145)
[2022-05-07] MEDS: Aspirin 81 mg Enteric Coated Tablet PO SCH (10:57)
[2022-05-07] MEDS: Cholecalciferol 1,000 UNITS (25 MCG) TAB PO SCH (10:57)
[2022-05-07] MEDS: Metoprolol Tartrate 50 MG TAB PO SCH (10:58)
[2022-05-07] MEDS: Clopidogrel Bisulfate 75 MG TAB PO SCH (10:58)
[2022-05-07] MEDS: Heparin 5,000 UNITS/ML VIAL SC SCH (11:42)
[2022-05-07 12:40] VITALS: BP 161/89; TEMP 97.5
== END 2022-05-07 12:45 | disposition home or self-care (01) | DRG 637 ==
LOC: ERS 12:40 → CCU 15:41 → 2NO 22:07
PROVIDERS: ADMIT Family Medicine; ATTEND Family Medicine
DX: E11.00 Type 2 diabetes mellitus with hyperosmolarity without nonketotic hyperglycemic-hyperosmolar coma (NKHHC) (principal); N39.0 Urinary tract infection, site not specified; G93.41 Metabolic encephalopathy; N18.4 Chronic kidney disease, stage 4 (severe); N17.9 Acute kidney failure, unspecified; Z66 Do not resuscitate; Z20.822 Contact with and (suspected) exposure to COVID-19; E11.65 Type 2 diabetes mellitus with hyperglycemia; E11.22 Type 2 diabetes mellitus with diabetic chronic kidney disease; E78.5 Hyperlipidemia, unspecified; I12.9 Hypertensive chronic kidney disease with stage 1 through stage 4 chronic kidney disease, or unspecified chronic kidney disease; E86.0 Dehydration; F32.A Depression, unspecified; B96.20 Unspecified Escherichia coli [E. coli] as the cause of diseases classified elsewhere; Z86.73 Personal history of transient ischemic attack (TIA), and cerebral infarction without residual deficits; Z79.899 Other long term (current) drug therapy; Z79.01 Long term (current) use of anticoagulants; Z79.82 Long term (current) use of aspirin; Z79.4 Long term (current) use of insulin
CPT/HCPCS: 36415; 36416; 51701; 70450; 70551; 71045; 80048; 80053; 81003; 81015; 82553; 83735; 84484; 85025; 85610; 85730; 87040; 87077; 87086; 87186; 93005; 96365; J0696; J1644; J1815; J3480; J3490; J7030; J7042; J7050; S0028; U0003; U0005

== ENCOUNTER 2022-06-19 11:28 | Observation (INO) | payer MEDICAID ==
[2022-06-19 12:52] LABS: #Lymphocytes 1.1 thou/uL (1.20-3.40); #Monocytes 0.3 thou/uL (0.11-0.59); #Neutrophils 5.4 thou/uL (1.40-6.50); %Basophils 0.6 % (0.0-1.0); %Eosinophils 0.7 % (0.0-10.0); %Lymphocytes 16.1 % (21.0-51.0); %Monocytes 4.6 % (0.0-10.0); %Neutrophils 78.1 % (42.0-75.0); Hemoglobin 11.3 g/dL (12.0-16.0); Mean Corpuscular HGB CONC 31.5 g/dL (32.0-36.0); Mean Corpuscular Hemoglobin 29.1 pg (27.0-31.0); Mean Corpuscular Volume 92.5 fl (78.0-98.0); Mean Platelet Volume 7.7 fL (7.4-10.4); Platelet Count 401 10x3/uL (130-400); RBC Distribution Width 14.2 % (11.5-14.5); Red Blood Cell (RBC) Count 3.86 mill/uL (4.20-5.40)
[2022-06-19 13:04] LABS: INR-International Normal Ratio 0.9; Prothrombin Time 12.6 sec (12.0-14.7)
[2022-06-19 13:16] LABS: ALT (SGPT) 50 U/L (8-55); AST (SGOT) 40 U/L (5-34); Albumin 4.1 g/dL (3.4-4.8); Alkaline Phosphatase 114 U/L (40-110); Anion Gap 15 mmol/L (10-20); BUN (Urea Nitrogen) 42 mg/dL (9.8-20.1); Bilirubin, Total 0.5 mg/dL (0.2-1.2); Calc. Creatinine Clearance 0 mL/min (70-130); Calcium 9.2 mg/dL (7.8-10.44); Carbon Dioxide 19 mmol/L (23-31); Chloride 110 mmol/L (98-107); Estimated GFR 32; Globulin 3.4 g/dL (2.4-3.5); Glucose 68 mg/dL (83-110); Potassium 4.6 mmol/L (3.5-5.1); Protein, Total 7.5 g/dL (5.8-8.1); Sodium 139 mmol/L (136-145)
[2022-06-19 15:14] LABS: Bilirubin Negative (Negative); Blood, Urine Negative (Negative); Clarity Clear (Clear); Glucose, Urine (Dipstick) Normal (Negative); Ketone, Urine Negative (Negative); Leukocyte 250 Leu/uL (Negative); Nitrite Negative (Negative); Protein, Urine (Dipstick) 30 mg/dL (Neg-Trace); RBC/HPF 0-3 HPF (0-3); Specific Gravity, Urine 1.013 (1.002-1.036); Squamous Epithelial 0-3 HPF (0-3); Urobilinogen Normal mg/dL (Less than 2); pH, Urine 5.5 (5.0-9.0)
[2022-06-19 15:17] LABS: Bacteria/HPF 1+ HPF (None Seen)
[2022-06-19] MEDS ORDERED: Ondansetron PF 4 MG/2 ML Vial IVP PRN (16:55)
[2022-06-19] MEDS ORDERED: Acetaminophen 650 MG Suppository PR PRN (16:55)
[2022-06-19] MEDS ORDERED: Acetaminophen 325 MG TAB PO PRN (16:55)
[2022-06-19] MEDS ORDERED: Ondansetron ODT 4 MG TAB PO PRN (16:55)
[2022-06-19] MEDS ORDERED: Dextrose 50% Abboject 50 ML SYRINGE SLOW IVP PRN (16:57)
[2022-06-19] MEDS ORDERED: Dextrose 5% in Water 1,000 ML IV PRN (16:57)
[2022-06-19 17:33] LABS: SARS-CoV-2 NAA Rapid Test Not Detected (NotDetected)
[2022-06-19] MEDS: Dextrose 5 % And 0.9 % NaCl 1,000 ML IV SCH (18:30)
[2022-06-19] MEDS ORDERED: Acetaminophen 325 MG Suppository ONE (18:40)
[2022-06-19] MEDS ORDERED: Acetaminophen 325 MG TAB ONE (18:40)
[2022-06-19 20:35] VITALS: BMI 25.5
[2022-06-19] MEDS ORDERED: Atorvastatin Calcium 40 MG TAB PO SCH (21:00)
[2022-06-19] MEDS: Metoprolol Tartrate 50 MG TAB PO SCH (21:53)
[2022-06-20 05:21] LABS: #Eosinphils 0.1 thou/uL (0.0-0.7); #Lymphocytes 1.5 thou/uL (1.20-3.40); #Monocytes 0.6 thou/uL (0.11-0.59); #Neutrophils 4.6 thou/uL (1.40-6.50); %Basophils 0.5 % (0.0-1.0); %Eosinophils 1.5 % (0.0-10.0); %Lymphocytes 22.2 % (21.0-51.0); %Monocytes 8.4 % (0.0-10.0); %Neutrophils 67.4 % (42.0-75.0); Hemoglobin 8.8 g/dL (12.0-16.0); Mean Corpuscular HGB CONC 31.8 g/dL (32.0-36.0); Mean Corpuscular Hemoglobin 29.4 pg (27.0-31.0); Mean Corpuscular Volume 92.4 fl (78.0-98.0); Mean Platelet Volume 7.8 fL (7.4-10.4); Platelet Count 313 10x3/uL (130-400); RBC Distribution Width 14.1 % (11.5-14.5); Red Blood Cell (RBC) Count 2.99 mill/uL (4.20-5.40); White Blood Cell (WBC) Count 6.8 10x3/uL (4.8-10.8)
[2022-06-20 05:45] LABS: Anion Gap 9 mmol/L (10-20); BUN (Urea Nitrogen) 42 mg/dL (9.8-20.1); Calc. Creatinine Clearance 24 mL/min (70-130); Calcium 8.1 mg/dL (7.8-10.44); Carbon Dioxide 20 mmol/L (23-31); Chloride 112 mmol/L (98-107); Estimated GFR 28; Glucose 99 mg/dL (83-110); Potassium 4.3 mmol/L (3.5-5.1); Sodium 137 mmol/L (136-145)
[2022-06-20 08:26] VITALS: TEMP 98.6
[2022-06-20] MEDS: Metoprolol Tartrate 50 MG TAB PO SCH (08:37)
[2022-06-20] MEDS: Dextrose 5 % And 0.9 % NaCl 1,000 ML IV SCH (08:40)
[2022-06-20] MEDS ORDERED: Aspirin 81 mg Enteric Coated Tablet PO SCH (09:00)
[2022-06-20] MEDS ORDERED: Clopidogrel Bisulfate 75 MG TAB PO SCH (09:00)
[2022-06-20 09:20] LABS: Hemoglobin A1c 9.3 % (4.0-6.0)
[2022-06-20 11:49] VITALS: BP 162/74
[2022-06-21] MEDS ORDERED: NIFEdipine XL 60 MG TAB PO SCH (09:00)
[2022-06-21] MEDS ORDERED: Cholecalciferol 1,000 UNITS (25 MCG) TAB PO SCH (09:00)
== END 2022-06-20 13:17 | disposition home or self-care (01) ==
LOC: ERS 11:28 → ERHOLD 14:51 → 2NO 19:37
PROVIDERS: ADMIT Internal Medicine; ATTEND Internal Medicine
DX: E11.649 Type 2 diabetes mellitus with hypoglycemia without coma (principal); T38.3X5A Adverse effect of insulin and oral hypoglycemic [antidiabetic] drugs, initial encounter; G93.41 Metabolic encephalopathy; I12.9 Hypertensive chronic kidney disease with stage 1 through stage 4 chronic kidney disease, or unspecified chronic kidney disease; E11.22 Type 2 diabetes mellitus with diabetic chronic kidney disease; N18.30 Chronic kidney disease, stage 3 unspecified; E78.5 Hyperlipidemia, unspecified; I69.392 Facial weakness following cerebral infarction; I69.322 Dysarthria following cerebral infarction; I69.321 Dysphasia following cerebral infarction; Z79.02 Long term (current) use of antithrombotics/antiplatelets; Z79.4 Long term (current) use of insulin; Z79.82 Long term (current) use of aspirin; Z79.899 Other long term (current) drug therapy; Z20.822 Contact with and (suspected) exposure to COVID-19
CPT/HCPCS: 36415; 36416; 51701; 70450; 71045; 80048; 80053; 81003; 81015; 83036; 84484; 85025; 85610; 85730; 93005; 94760; 96374; G0378; J7042; U0002

== ENCOUNTER 2022-09-28 17:29 | Inpatient (IN) | payer MEDICAID, SELFPAY ==
[2022-09-28 20:01] LABS: Troponin I Less than 0.010 ng/mL (< 0.028)
[2022-09-28 20:11] LABS: #Eosinphils 0.1 thou/uL (0.0-0.7); #Lymphocytes 1.4 thou/uL (1.20-3.40); #Neutrophils 5.4 thou/uL (1.40-6.50); %Basophils 0.2 % (0.0-1.0); %Eosinophils 1.2 % (0.0-10.0); %Lymphocytes 17.2 % (21.0-51.0); %Monocytes 12.9 % (0.0-10.0); %Neutrophils 68.5 % (42.0-75.0); Hemoglobin 10.9 g/dL (12.0-16.0); Mean Corpuscular HGB CONC 34.8 g/dL (32.0-36.0); Mean Corpuscular Hemoglobin 30.2 pg (27.0-31.0); Mean Corpuscular Volume 86.9 fl (78.0-98.0); Mean Platelet Volume 8.2 fL (7.4-10.4); Platelet Count 352 10x3/uL (130-400); RBC Distribution Width 12.6 % (11.5-14.5); White Blood Cell (WBC) Count 7.9 10x3/uL (4.8-10.8)
[2022-09-28 20:45] LABS: SARS-CoV-2 NAA Rapid Test DETECTED (NotDetected)
[2022-09-28 20:53] LABS: Albumin 3.7 g/dL (3.4-4.8)
[2022-09-28 20:54] LABS: Chloride 103 mmol/L (98-107); Potassium 5.1 mmol/L (3.5-5.1); Sodium 132 mmol/L (136-145)
[2022-09-28 20:55] LABS: Calcium 9.2 mg/dL (7.8-10.44)
[2022-09-28 20:56] LABS: Globulin 3.2 g/dL (2.4-3.5); Glucose 154 mg/dL (83-110); Protein, Total 6.9 g/dL (5.8-8.1)
[2022-09-28 20:57] LABS: Anion Gap 17 mmol/L (10-20); Bilirubin, Total 0.3 mg/dL (0.2-1.2); Carbon Dioxide 17 mmol/L (23-31)
[2022-09-28 20:58] LABS: Alkaline Phosphatase 129 U/L (40-110)
[2022-09-28 20:59] LABS: Calc. Creatinine Clearance 0 mL/min (70-130); Estimated GFR 18
[2022-09-28 21:00] LABS: BUN (Urea Nitrogen) 58 mg/dL (9.8-20.1)
[2022-09-28 21:01] LABS: ALT (SGPT) 21 U/L (8-55); AST (SGOT) 17 U/L (5-34)
[2022-09-28 22:08] LABS: Magnesium 1.9 mg/dL (1.6-2.6)
[2022-09-28] MEDS ORDERED: Acetaminophen 325 MG TAB PO PRN (22:13)
[2022-09-28] MEDS ORDERED: Senokot S 8.6-50 MG TAB PO PRN (22:13)
[2022-09-28] MEDS ORDERED: Heparin 25,000 units/D5W 500 ML IVPB SCH (22:15)
[2022-09-28] MEDS ORDERED: Sodium Chloride 0.9% 1,000 ML IV SCH (22:15)
[2022-09-28] MEDS ORDERED: Sodium Bicarb 50 MEQ/50 ML Abboject 8.4% SYRINGE IVP SCH (22:30)
[2022-09-29] MEDS ORDERED: Dextrose 50% Abboject 50 ML SYRINGE SLOW IVP PRN (00:08)
[2022-09-29] MEDS ORDERED: HumaLOG 300 UNITS/3 ML VIAL SC PRN (00:08)
[2022-09-29] MEDS ORDERED: Dextrose 5% in Water 1,000 ML IV PRN (00:08)
[2022-09-29] MEDS ORDERED: Heparin 10,000 UNITS/ 10 ML VIAL SLOW IVP SCH ×2 (00:45→07:00)
[2022-09-29 01:16] LABS: Troponin I 0.016 ng/mL (< 0.028)
[2022-09-29 04:16] LABS: #Eosinphils 0.2 thou/uL (0.0-0.7); #Lymphocytes 1.8 thou/uL (1.20-3.40); #Monocytes 0.7 thou/uL (0.11-0.59); #Neutrophils 3.1 thou/uL (1.40-6.50); %Basophils 0.2 % (0.0-1.0); %Lymphocytes 31.1 % (21.0-51.0); %Monocytes 11.9 % (0.0-10.0); %Neutrophils 53.8 % (42.0-75.0); Hemoglobin 10.5 g/dL (12.0-16.0); Mean Corpuscular HGB CONC 35.1 g/dL (32.0-36.0); Mean Corpuscular Volume 88.2 fl (78.0-98.0); Mean Platelet Volume 8.2 fL (7.4-10.4); Platelet Count 366 10x3/uL (130-400); RBC Distribution Width 12.6 % (11.5-14.5); Red Blood Cell (RBC) Count 3.38 mill/uL (4.20-5.40); White Blood Cell (WBC) Count 5.8 10x3/uL (4.8-10.8)
[2022-09-29 04:38] LABS: Anion Gap 14 mmol/L (10-20); BUN (Urea Nitrogen) 52 mg/dL (9.8-20.1); Calc. Creatinine Clearance 17 mL/min (70-130); Carbon Dioxide 23 mmol/L (23-31); Chloride 105 mmol/L (98-107); Estimated GFR 23; Glucose 74 mg/dL (83-110); Potassium 4.4 mmol/L (3.5-5.1); Sodium 138 mmol/L (136-145)
[2022-09-29 04:43] LABS: Troponin I 0.019 ng/mL (< 0.028)
[2022-09-29 07:54] LABS: Hemoglobin 10.6 g/dL (12.0-16.0); Platelet Count 346 10x3/uL (130-400)
[2022-09-29 08:11] LABS: PTT 236.9 sec (22.9-36.1)
[2022-09-29] MEDS ORDERED: Furosemide 20 MG TAB PO SCH (09:00)
[2022-09-29] MEDS ORDERED: Aspirin 81 mg Enteric Coated Tablet PO SCH (09:00)
[2022-09-29] MEDS: HumaLOG 300 UNITS/3 ML VIAL SC PRN (09:43)
[2022-09-29] MEDS: Multivitamin W/ Minerals 1 TAB PO SCH (09:44)
[2022-09-29] MEDS: Cholecalciferol 1,000 UNITS (25 MCG) TAB PO SCH (09:44)
[2022-09-29] MEDS: NIFEdipine XL 60 MG TAB PO SCH (09:44)
[2022-09-29] MEDS: Famotidine 20 MG TAB PO SCH (09:44)
[2022-09-29] MEDS: Metoprolol Tartrate 50 MG TAB PO SCH ×2 (09:45→21:09)
[2022-09-29] MEDS: Insulin Glargine 30 UNITS/0.3 ML VIAL SC SCH (09:45)
[2022-09-29] MEDS ORDERED: Metoprolol Tartrate 50 MG TAB PO SCH (15:30)
[2022-09-29] MEDS: Melatonin 3 MG TAB PO SCH (21:09)
[2022-09-29] MEDS: Atorvastatin Calcium 40 MG TAB PO SCH (21:09)
[2022-09-30 08:46] LABS: #Eosinphils 0.1 thou/uL (0.0-0.7); #Lymphocytes 1.6 thou/uL (1.20-3.40); #Monocytes 0.5 thou/uL (0.11-0.59); #Neutrophils 2.8 thou/uL (1.40-6.50); %Basophils 0.5 % (0.0-1.0); %Lymphocytes 31.5 % (21.0-51.0); %Monocytes 9.1 % (0.0-10.0); %Neutrophils 56.9 % (42.0-75.0); Hemoglobin 8.8 g/dL (12.0-16.0); Mean Corpuscular HGB CONC 35.9 g/dL (32.0-36.0); Mean Corpuscular Hemoglobin 31.8 pg (27.0-31.0); Mean Corpuscular Volume 88.6 fl (78.0-98.0); Mean Platelet Volume 7.9 fL (7.4-10.4); Platelet Count 360 10x3/uL (130-400); RBC Distribution Width 12.7 % (11.5-14.5); Red Blood Cell (RBC) Count 2.77 mill/uL (4.20-5.40); White Blood Cell (WBC) Count 4.9 10x3/uL (4.8-10.8)
[2022-09-30 09:05] LABS: ALT (SGPT) 23 U/L (8-55); AST (SGOT) 22 U/L (5-34); Albumin 3.3 g/dL (3.4-4.8); Alkaline Phosphatase 99 U/L (40-110); Anion Gap 13 mmol/L (10-20); BUN (Urea Nitrogen) 50 mg/dL (9.8-20.1); Bilirubin, Total 0.2 mg/dL (0.2-1.2); Calc. Creatinine Clearance 17 mL/min (70-130); Calcium 8.5 mg/dL (7.8-10.44); Carbon Dioxide 22 mmol/L (23-31); Chloride 105 mmol/L (98-107); Estimated GFR 23; Globulin 2.9 g/dL (2.4-3.5); Magnesium 1.9 mg/dL (1.6-2.6); Protein, Total 6.2 g/dL (5.8-8.1); Sodium 136 mmol/L (136-145)
[2022-09-30 09:23] LABS: Glucose 48 mg/dL (83-110)
[2022-09-30 09:30] LABS: INR-International Normal Ratio 0.9; Prothrombin Time 12.6 sec (12.0-14.7)
[2022-09-30 09:31] LABS: PTT 59.9 sec (22.9-36.1)
[2022-09-30] MEDS: Insulin Glargine 30 UNITS/0.3 ML VIAL SC SCH (11:14)
[2022-09-30] MEDS: Cholecalciferol 1,000 UNITS (25 MCG) TAB PO SCH (11:23)
[2022-09-30] MEDS: Famotidine 20 MG TAB PO SCH (11:25)
[2022-09-30] MEDS: NIFEdipine XL 60 MG TAB PO SCH (11:26)
[2022-09-30] MEDS: Multivitamin W/ Minerals 1 TAB PO SCH (11:29)
[2022-09-30] MEDS: Metoprolol Tartrate 50 MG TAB PO SCH ×2 (11:29→22:25)
[2022-09-30 14:51] LABS: Mean Corpuscular HGB CONC 34.4 g/dL (32.0-36.0); Mean Corpuscular Hemoglobin 30.4 pg (27.0-31.0); Mean Corpuscular Volume 88.2 fl (78.0-98.0); Mean Platelet Volume 7.7 fL (7.4-10.4); Platelet Count 403 10x3/uL (130-400); RBC Distribution Width 12.7 % (11.5-14.5); Red Blood Cell (RBC) Count 3.29 mill/uL (4.20-5.40); White Blood Cell (WBC) Count 5.6 10x3/uL (4.8-10.8)
[2022-09-30] MEDS: Sodium Chloride 0.9% 1,000 ML IV SCH (15:02)
[2022-09-30 15:52] LABS: Bacteria/HPF 4+ HPF (None Seen); Bilirubin Negative (Negative); Blood, Urine 1+ (Negative); CAUTI Indications for Culture Alt mental st,lethar; Clarity Turbid (Clear); Glucose, Urine (Dipstick) Normal (Negative); Ketone, Urine Negative (Negative); Leukocyte 500 Leu/uL (Negative); Nitrite Negative (Negative); Protein, Urine (Dipstick) 50 mg/dL (Neg-Trace); Specific Gravity, Urine 1.009 (1.002-1.036); Squamous Epithelial 0-3 HPF (0-3); Urobilinogen Normal mg/dL (Less than 2); WBC/HPF Greater than 50 HPF (0-3)
[2022-09-30 15:53] LABS: Urine Culture Reflex Yes Yes
[2022-09-30] MEDS: Apixaban 5 MG TAB PO SCH (22:24)
[2022-09-30] MEDS: Melatonin 3 MG TAB PO SCH (22:25)
[2022-09-30] MEDS: Atorvastatin Calcium 40 MG TAB PO SCH (22:25)
[2022-09-30] MEDS: cefTRIAXone\\ROCEPHIN 1 GM in Sodium Chloride 0.9% 100 ML IVPB SCH (22:25)
[2022-10-01 04:54] LABS: #Eosinphils 0.1 thou/uL (0.0-0.7); #Lymphocytes 1.8 thou/uL (1.20-3.40); #Monocytes 0.6 thou/uL (0.11-0.59); #Neutrophils 2.7 thou/uL (1.40-6.50); %Basophils 0.1 % (0.0-1.0); %Eosinophils 2.5 % (0.0-10.0); %Lymphocytes 33.9 % (21.0-51.0); %Monocytes 11.6 % (0.0-10.0); %Neutrophils 51.9 % (42.0-75.0); Hemoglobin 9.1 g/dL (12.0-16.0); Mean Corpuscular HGB CONC 33.4 g/dL (32.0-36.0); Mean Corpuscular Hemoglobin 29.2 pg (27.0-31.0); Mean Corpuscular Volume 87.5 fl (78.0-98.0); Mean Platelet Volume 7.8 fL (7.4-10.4); Platelet Count 392 10x3/uL (130-400); RBC Distribution Width 12.7 % (11.5-14.5); Red Blood Cell (RBC) Count 3.11 mill/uL (4.20-5.40); White Blood Cell (WBC) Count 5.3 10x3/uL (4.8-10.8)
[2022-10-01 05:08] LABS: Anion Gap 11 mmol/L (10-20); BUN (Urea Nitrogen) 45 mg/dL (9.8-20.1); Calc. Creatinine Clearance 18 mL/min (70-130); Calcium 8.5 mg/dL (7.8-10.44); Carbon Dioxide 23 mmol/L (23-31); Chloride 109 mmol/L (98-107); Estimated GFR 24; Glucose 84 mg/dL (83-110); Magnesium 2.1 mg/dL (1.6-2.6); Potassium 4.4 mmol/L (3.5-5.1); Sodium 139 mmol/L (136-145)
[2022-10-01] MEDS: Sodium Chloride 0.9% 1,000 ML IV SCH (10:32)
[2022-10-01] MEDS: Cholecalciferol 1,000 UNITS (25 MCG) TAB PO SCH (10:34)
[2022-10-01] MEDS: Apixaban 5 MG TAB PO SCH (10:35)
[2022-10-01] MEDS: Metoprolol Tartrate 50 MG TAB PO SCH ×2 (10:35→21:20)
[2022-10-01] MEDS: NIFEdipine XL 60 MG TAB PO SCH (10:35)
[2022-10-01] MEDS: Famotidine 20 MG TAB PO SCH (10:35)
[2022-10-01] MEDS: Insulin Glargine 30 UNITS/0.3 ML VIAL SC SCH (10:37)
[2022-10-01] MEDS: Multivitamin W/ Minerals 1 TAB PO SCH (10:53)
[2022-10-01] MEDS ORDERED: Ipratropium/Albuterol 3 ML NEB NEB SCH (14:30)
[2022-10-01 16:03] LABS: Hemoglobin 10.2 g/dL (12.0-16.0)
[2022-10-01] MEDS: Albuterol 200 PUFF (6.7GM INHALER) INH SCH ×3 (18:39→22:13)
[2022-10-01] MEDS: HumaLOG 300 UNITS/3 ML VIAL SC PRN (18:41)
[2022-10-01] MEDS ORDERED: Heparin 25,000 units/D5W 500 ML IV SCH (21:00)
[2022-10-01] MEDS ORDERED: Heparin 10,000 UNITS/ 10 ML VIAL SLOW IVP SCH (21:00)
[2022-10-01] MEDS ORDERED: Warfarin Sodium 2.5 MG TAB PO SCH (21:00)
[2022-10-01] MEDS: Atorvastatin Calcium 40 MG TAB PO SCH (21:20)
[2022-10-01] MEDS: Melatonin 3 MG TAB PO SCH (21:20)
[2022-10-01] MEDS: cefTRIAXone\\ROCEPHIN 1 GM in Sodium Chloride 0.9% 100 ML IVPB SCH (21:21)
[2022-10-01 23:46] LABS: Hemoglobin 8.7 g/dL (12.0-16.0)
[2022-10-02] MEDS: Albuterol 200 PUFF (6.7GM INHALER) INH SCH ×4 (03:21→21:22)
[2022-10-02 05:15] LABS: #Eosinphils 0.1 thou/uL (0.0-0.7); #Lymphocytes 1.6 thou/uL (1.20-3.40); #Monocytes 0.6 thou/uL (0.11-0.59); #Neutrophils 3.5 thou/uL (1.40-6.50); %Basophils 0.4 % (0.0-1.0); %Eosinophils 2.2 % (0.0-10.0); %Monocytes 10.8 % (0.0-10.0); %Neutrophils 59.7 % (42.0-75.0); Hemoglobin 8.7 g/dL (12.0-16.0); Mean Corpuscular HGB CONC 34.4 g/dL (32.0-36.0); Mean Corpuscular Hemoglobin 30.5 pg (27.0-31.0); Mean Corpuscular Volume 88.7 fl (78.0-98.0); Mean Platelet Volume 7.8 fL (7.4-10.4); Platelet Count 381 10x3/uL (130-400); RBC Distribution Width 12.6 % (11.5-14.5); Red Blood Cell (RBC) Count 2.86 mill/uL (4.20-5.40); White Blood Cell (WBC) Count 5.9 10x3/uL (4.8-10.8)
[2022-10-02 05:18] LABS: Anion Gap 11 mmol/L (10-20); BUN (Urea Nitrogen) 35 mg/dL (9.8-20.1); Calc. Creatinine Clearance 19 mL/min (70-130); Calcium 8.1 mg/dL (7.8-10.44); Carbon Dioxide 20 mmol/L (23-31); Chloride 108 mmol/L (98-107); Estimated GFR 27; Glucose 208 mg/dL (83-110); Potassium 4.4 mmol/L (3.5-5.1); Sodium 135 mmol/L (136-145)
[2022-10-02 05:26] LABS: INR-International Normal Ratio 1.4; Prothrombin Time 17.6 sec (12.0-14.7)
[2022-10-02] MEDS: Sodium Chloride 0.9% 1,000 ML IV SCH (05:58)
[2022-10-02 07:35] LABS: PTT 134.9 sec (22.9-36.1)
[2022-10-02] MEDS: Cholecalciferol 1,000 UNITS (25 MCG) TAB PO SCH (09:37)
[2022-10-02] MEDS: Metoprolol Tartrate 50 MG TAB PO SCH ×2 (09:38→21:21)
[2022-10-02] MEDS: NIFEdipine XL 60 MG TAB PO SCH (09:38)
[2022-10-02] MEDS: Insulin Glargine 30 UNITS/0.3 ML VIAL SC SCH (09:39)
[2022-10-02] MEDS: Multivitamin W/ Minerals 1 TAB PO SCH (09:39)
[2022-10-02] MEDS ORDERED: Warfarin Sodium 2.5 MG TAB PO SCH (17:00)
[2022-10-02] MEDS: Melatonin 3 MG TAB PO SCH (21:21)
[2022-10-02] MEDS: Atorvastatin Calcium 40 MG TAB PO SCH (21:21)
[2022-10-02] MEDS: cefTRIAXone\\ROCEPHIN 1 GM in Sodium Chloride 0.9% 100 ML IVPB SCH (21:22)
[2022-10-03] MEDS: Albuterol 200 PUFF (6.7GM INHALER) INH SCH (03:56)
[2022-10-03 05:00] LABS: #Eosinphils 0.1 thou/uL (0.0-0.7); #Lymphocytes 1.8 thou/uL (1.20-3.40); #Monocytes 0.8 thou/uL (0.11-0.59); #Neutrophils 4.8 thou/uL (1.40-6.50); %Basophils 0.4 % (0.0-1.0); %Eosinophils 1.4 % (0.0-10.0); %Lymphocytes 23.5 % (21.0-51.0); %Neutrophils 64.7 % (42.0-75.0); Mean Corpuscular HGB CONC 34.6 g/dL (32.0-36.0); Mean Corpuscular Hemoglobin 30.9 pg (27.0-31.0); Mean Corpuscular Volume 89.3 fl (78.0-98.0); Mean Platelet Volume 7.4 fL (7.4-10.4); Platelet Count 433 10x3/uL (130-400); RBC Distribution Width 12.5 % (11.5-14.5); Red Blood Cell (RBC) Count 2.92 mill/uL (4.20-5.40); White Blood Cell (WBC) Count 7.5 10x3/uL (4.8-10.8)
[2022-10-03 05:07] LABS: INR-International Normal Ratio 1.1; Prothrombin Time 14.4 sec (12.0-14.7)
[2022-10-03 05:19] LABS: Anion Gap 13 mmol/L (10-20); BUN (Urea Nitrogen) 36 mg/dL (9.8-20.1); Calc. Creatinine Clearance 19 mL/min (70-130); Calcium 8.4 mg/dL (7.8-10.44); Carbon Dioxide 19 mmol/L (23-31); Chloride 110 mmol/L (98-107); Estimated GFR 27; Glucose 148 mg/dL (83-110); Magnesium 2.1 mg/dL (1.6-2.6); Potassium 4.9 mmol/L (3.5-5.1); Sodium 137 mmol/L (136-145)
[2022-10-03] MEDS: Sodium Chloride 0.9% 1,000 ML IV SCH ×2 (05:34→12:24)
[2022-10-03] MEDS: NIFEdipine XL 60 MG TAB PO SCH (09:15)
[2022-10-03] MEDS: prednisoLONE 10 MG ODT TAB PO SCH (09:15)
[2022-10-03] MEDS: Multivitamin W/ Minerals 1 TAB PO SCH (09:15)
[2022-10-03] MEDS: Cholecalciferol 1,000 UNITS (25 MCG) TAB PO SCH (09:15)
[2022-10-03] MEDS: Insulin Glargine 30 UNITS/0.3 ML VIAL SC SCH (09:16)
[2022-10-03] MEDS: Metoprolol Tartrate 50 MG TAB PO SCH ×2 (09:17→19:59)
[2022-10-03] MEDS ORDERED: Bisacodyl 10 MG SUPP PR SCH (17:30)
[2022-10-03] MEDS ORDERED: Polyethylene Glycol 3350 17 GM Packet PO SCH (17:30)
[2022-10-03] MEDS: Atorvastatin Calcium 40 MG TAB PO SCH (19:59)
[2022-10-03] MEDS: Melatonin 3 MG TAB PO SCH (19:59)
[2022-10-03] MEDS: Ciprofloxacin 500 MG TAB PO SCH (19:59)
[2022-10-04 05:04] LABS: #Lymphocytes 1.3 thou/uL (1.20-3.40); #Monocytes 0.6 thou/uL (0.11-0.59); #Neutrophils 5.8 thou/uL (1.40-6.50); %Basophils 0.4 % (0.0-1.0); %Eosinophils 0.2 % (0.0-10.0); %Lymphocytes 16.7 % (21.0-51.0); %Monocytes 8.1 % (0.0-10.0); %Neutrophils 74.6 % (42.0-75.0); Hemoglobin 8.2 g/dL (12.0-16.0); Mean Corpuscular HGB CONC 33.9 g/dL (32.0-36.0); Mean Corpuscular Hemoglobin 30.1 pg (27.0-31.0); Mean Corpuscular Volume 88.8 fl (78.0-98.0); Mean Platelet Volume 7.3 fL (7.4-10.4); Platelet Count 401 10x3/uL (130-400); RBC Distribution Width 12.6 % (11.5-14.5); Red Blood Cell (RBC) Count 2.71 mill/uL (4.20-5.40); White Blood Cell (WBC) Count 7.8 10x3/uL (4.8-10.8)
[2022-10-04] MEDS: Ciprofloxacin 500 MG TAB PO SCH (05:24)
[2022-10-04 05:27] LABS: INR-International Normal Ratio 1.1; Prothrombin Time 14.5 sec (12.0-14.7)
[2022-10-04 05:31] LABS: Anion Gap 10 mmol/L (10-20); BUN (Urea Nitrogen) 33 mg/dL (9.8-20.1); Calc. Creatinine Clearance 20 mL/min (70-130); Calcium 8.2 mg/dL (7.8-10.44); Carbon Dioxide 21 mmol/L (23-31); Chloride 110 mmol/L (98-107); Estimated GFR 28; Glucose 190 mg/dL (83-110); Potassium 4.8 mmol/L (3.5-5.1); Sodium 136 mmol/L (136-145)
[2022-10-04] MEDS: Multivitamin W/ Minerals 1 TAB PO SCH (11:05)
[2022-10-04] MEDS: Cholecalciferol 1,000 UNITS (25 MCG) TAB PO SCH (11:09)
[2022-10-04] MEDS: Polyethylene Glycol 3350 17 GM Packet PO SCH ×2 (11:09→11:11)
[2022-10-04] MEDS: Metoprolol Tartrate 50 MG TAB PO SCH (11:10)
[2022-10-04] MEDS: NIFEdipine XL 60 MG TAB PO SCH (11:10)
[2022-10-04] MEDS: Insulin Glargine 30 UNITS/0.3 ML VIAL SC SCH (11:11)
[2022-10-04] MEDS: Sodium Chloride 0.9% 1,000 ML IV SCH (11:14)
[2022-10-04] MEDS: prednisoLONE 10 MG ODT TAB PO SCH (11:28)
[2022-10-04] MEDS: Albuterol 200 PUFF (6.7GM INHALER) INH SCH ×2 (13:49→13:50)
[2022-10-04 14:05] VITALS: BMI 22.2
[2022-10-04 16:30] VITALS: BP 170/70; TEMP 97.9
== END 2022-10-04 17:27 | disposition home or self-care (01) | DRG 178 ==
LOC: ERS 17:29 → 2NO 22:20
PROVIDERS: ADMIT Student in an Organized Health Care Education/Training Program; ATTEND Internal Medicine
PROC: 8E0ZXY6 Isolation (ICD-10-PCS; principal; 2022-09-28)
DX: U07.1 COVID-19 (principal); E87.20 Acidosis, unspecified; N17.9 Acute kidney failure, unspecified; N30.00 Acute cystitis without hematuria; Z66 Do not resuscitate; I25.10 Atherosclerotic heart disease of native coronary artery without angina pectoris; N18.9 Chronic kidney disease, unspecified; E11.22 Type 2 diabetes mellitus with diabetic chronic kidney disease; I12.9 Hypertensive chronic kidney disease with stage 1 through stage 4 chronic kidney disease, or unspecified chronic kidney disease; D63.1 Anemia in chronic kidney disease; E86.0 Dehydration; F32.A Depression, unspecified; Z79.82 Long term (current) use of aspirin; Z79.899 Other long term (current) drug therapy; Z79.4 Long term (current) use of insulin; I69.920 Aphasia following unspecified cerebrovascular disease
CPT/HCPCS: 36415; 36416; 70450; 71045; 71250; 74176; 74177; 78451; 80048; 80053; 81001; 83036; 83735; 83880; 84145; 84443; 84484; 85025; 85379; 85610; 85730; 86850; 86900; 86901; 87040; 87077; 87086; 87186; 93005; 93306; 93970; 96372; A9540; J0696; J1644; J1650; J1815; J3490; J7050

== ENCOUNTER 2022-10-13 12:26 | Emergency (ER) | payer MEDICAID | END 2022-10-13 14:44 | disposition home or self-care (01) | LOC: ERS 12:26 | DX: T83.9XXA Unspecified complication of genitourinary prosthetic device, implant and graft, initial encounter (principal); E11.22 Type 2 diabetes mellitus with diabetic chronic kidney disease; N18.9 Chronic kidney disease, unspecified; I12.9 Hypertensive chronic kidney disease with stage 1 through stage 4 chronic kidney disease, or unspecified chronic kidney disease; Z79.899 Other long term (current) drug therapy; Z79.4 Long term (current) use of insulin | CPT/HCPCS: 99283 ==

== ENCOUNTER 2024-02-24 13:55 | Emergency (ER) | payer SELFPAY ==
[2024-02-24] MEDS ORDERED: Amiodarone 150 MG/3 ML VIAL ONE (13:56)
[2024-02-24] MEDS ORDERED: Sodium Bicarb 50 MEQ/50 ML Abboject 8.4% SYRINGE ONE (13:56)
[2024-02-24 14:45] LABS: Actual Bicarbonate (HCO3a) 20.8 mEq/L (22-28); Analyzer IN Cardio ER; CO2 Tension 62.8 mmHg (35.0-45.0); Calcium, Ionized (arterial) 1.06 mmol/L (1.12-1.30); Carboxyhemoglobin (COHb) 1.3 gm% (0.0-3.0); Hematocrit-ABG 24 % (36.0-47.0); Hemoglobin (Hb) 8.2 g/dL (12.0-16.0); O2 Tension (PaO2), arterial 64.9 mmHg (> 70.0); Potassium - ABG Lab 4.03 mmol/L (3.70-5.30); pH, Arterial 7.138 (7.35-7.45)
[2024-02-24 14:46] LABS: Puncture Site Right Radial artery
[2024-02-24] MEDS ORDERED: Propofol 1,000 MG/100 ML VIAL IV PRN (15:00)
[2024-02-24] MEDS ORDERED: Fentanyl BOLUS 250 ML IVPB PRN (15:00)
[2024-02-24] MEDS ORDERED: Propofol BOLUS 1,000 MG/100 ML VIAL IV PRN (15:00)
[2024-02-24] MEDS ORDERED: Fentanyl CADD 100 ML IV SCH (15:00)
[2024-02-24 15:14] LABS: Hemoglobin 8.2 g/dL (12.0-16.0); Mean Corpuscular HGB CONC 31.5 g/dL (32.0-36.0); Mean Corpuscular Hemoglobin 27.5 pg (27.0-31.0); Mean Corpuscular Volume 87.2 fL (78.0-98.0); Mean Platelet Volume 9.7 fL (7.4-10.4); Platelet Count 390 10x3/uL (130-400); RBC Distribution Width 14.5 % (11.5-14.5); Red Blood Cell (RBC) Count 2.98 mill/uL (4.20-5.40)
[2024-02-24 15:17] LABS: ALT (SGPT) 393 U/L (8-55); AST (SGOT) 359 U/L (5-34); Albumin 2.4 g/dL (3.4-4.8); Alkaline Phosphatase 128 U/L (40-110); Anion Gap 26 mmol/L (10-20); BUN (Urea Nitrogen) 63 mg/dL (9.8-20.1); Bilirubin, Total 0.2 mg/dL (0.2-1.2); Calc. Creatinine Clearance 0 mL/min (70-130); Calcium 7.8 mg/dL (7.8-10.44); Carbon Dioxide 14 mmol/L (23-31); Chloride 107 mmol/L (98-107); Estimated GFR 16; Glucose 456 mg/dL (83-110); Lipase 24 U/L (8-78); Magnesium 2.4 mg/dL (1.6-2.6); Protein, Total 5.4 g/dL (5.8-8.1); Sodium 142 mmol/L (136-145)
[2024-02-24 15:17] LABS: INR-International Normal Ratio 1.1; Prothrombin Time 14.5 sec (12.0-14.7)
[2024-02-24 15:18] LABS: PTT 36.9 sec (22.9-36.1)
[2024-02-24 15:20] LABS: Troponin I 0.034 ng/mL (< 0.028)
[2024-02-24 15:20] LABS: Actual Bicarbonate (HCO3v) 19.3 mEq/L (22-28); Analyzer IN Cardio ER; Base Excess -6.8 mEq/L (-2.0 to +3.0); Calcium, Ionized (venous) 1.05 mmol/L (1.16-1.32); Chloride (VBG) 103 mmol/L (98-106); Hematocrit-VBG 28 % (36.0-47.0); Hemoglobin (Hb) 9.6 g/dL (11.7-16.1); Potassium (VBG) 3.99 mmol/L (3.70-5.30); Sodium 143 mmol/L (133-146)
[2024-02-24] MEDS ORDERED: Propofol 1,000 MG/100 ML VIAL IV ONE (15:42)
[2024-02-24 15:59] LABS: Bacteria/HPF 2+ HPF (None Seen); Bilirubin Negative (Negative); Blood, Urine Negative (Negative); CAUTI Indications for Culture Alt mental st,lethar; Clarity Turbid (Clear); Glucose, Urine (Dipstick) Normal (Negative); Ketone, Urine Negative (Negative); Leukocyte 500 Leu/uL (Negative); Nitrite Negative (Negative); Protein, Urine (Dipstick) 20 mg/dL (Neg-Trace); RBC/HPF 0-3 HPF (0-3); Specific Gravity, Urine 1.011 (1.002-1.036); Squamous Epithelial 0-3 HPF (0-3); Urobilinogen Normal mg/dL (Less than 2); WBC/HPF 21-50 HPF (0-3)
[2024-02-24 16:01] LABS: Urine Culture Reflex Yes Yes
[2024-02-24 17:14] LABS: Band 2 % (5-11); Burr Cells SLIGHT = 2-5 cells HPF (0-1); Eosinophils 3 % (0-10); Lymphocytes 57 % (21-51); Metamyelocyte 5 % (0-0); Monocytes 3 % (0-10); Myelocyte 1 % (0-0); Neutrophil 29 % (42-75); Nucleated RBC (Manual Ct) 1 % (0); Ovalocytes SLIGHT = 2-5 cells HPF (0-1); Platelet Adequacy Comment Platelets Normal; Polychromasia SLIGHT = 2-3 cells HPF (0-2); Reflex for Review?? YES; Schistocytes SLIGHT = 2-5 cells HPF (0-1)
[2024-02-24] MEDS ORDERED: Atropine Sulfate 1 mg/10 ml Syringe ONE (17:33)
== END 2024-02-24 17:49 | disposition expired ==
LOC: ERS 13:55
DX: I46.9 Cardiac arrest, cause unspecified (principal); I12.9 Hypertensive chronic kidney disease with stage 1 through stage 4 chronic kidney disease, or unspecified chronic kidney disease; E11.22 Type 2 diabetes mellitus with diabetic chronic kidney disease; N18.9 Chronic kidney disease, unspecified; Z75.8 Other problems related to medical facilities and other health care
CPT/HCPCS: 31500; 32551; 36415; 36556; 36600; 51702; 71045; 80053; 81001; 82805; 83605; 83690; 83735; 84443; 84484; 85025; 85060; 85610; 85730; 86850; 86900; 86901; 87040; 87077; 87086; 87186; 93005; 94002; 96374; 96375; J0282; J0461; J2704; J3010